=== PATIENT | male | born 1960 | race Caucasian/White ===

== ENCOUNTER 2017-02-02 14:17 | Observation (INO) ==
[2017-02-02 14:40] LABS: Basophils # 0.1 K/mcL (0.0-0.2); Basophils % 0.5 %; Eosinophils # 0.1 K/mcL (0.0-0.6); Eosinophils % 0.9 %; Hematocrit 46.4 % (37.5-50.1); Hemoglobin 15.7 g/dL (12.9-16.9); Immature Granulocytes % 0.5 % (0-4); Lymphocytes # 2.7 K/mcL (0.6-4.6); Lymphocytes % 20.6 %; Mean Corpuscular HGB Conc 33.8 g/dL (31.6-35.5); Mean Corpuscular Volume 88.5 fL (83.0-100.0); Mean Platelet Volume 9.7 fL (9.4-12.4); Monocytes # 1.2 K/mcL (0.0-1.3); Monocytes % 9.4 %; Neutrophils # 8.9 K/mcL (1.6-8.9); Platelet Count 372 K/mcL (140-400); Red Blood Count 5.24 M/mcL (4.19-5.50); Red Cell Distribution Width 12.7 % (11.5-14.5); Segmented Neutrophils % 68.1 %
[2017-02-02 14:48] LABS: INR 1.1; Prothrombin Time 11.9 Seconds (9.4-12.1)
[2017-02-02 14:50] LABS: BUN/Creatinine Ratio 12 (6-26); Blood Urea Nitrogen 14 mg/dL (8-26); Calcium 10.2 mg/dL (8.6-10.8); Carbon Dioxide 26 mEq/L (19-29); Chloride 102 mEq/L (98-109); Glucose 98 mg/dL (70-99); Osmolality,Calculated 284 (280-300); Potassium 4.2 mEq/L (3.5-4.5); Sodium 137 mEq/L (136-145); eGFR For African Americans > 60 (> 60); eGFR For Non-African Americans > 60 (> 60)
[2017-02-02 14:51] LABS: Activated Partial Thrombo Time 30.9 Seconds (26.0-36.0)
--- NOTE | 2017-02-02 15:04 | Emergency Department Note ---
Disposition Clinical Impression: Atrial fibrillation with rapid ventricular response Disposition: Admitted As Inpatient Condition: Fair Forms: ED Satisfaction Letter Time of Disposition: 15:33 Chest Pain HPI - General Chief Complaint: ED Chest Pain Stated Complaint: low bp, jaw pain, SOB. Time Seen by Provider: 02/02/17 14:25 Source: patient Limitations: no limitations Vital Signs Reviewed: Yes Nursing Notes Reviewed: Yes - History of Present Illness HPI Narrative: Presents with lightheadedness, chest palpitations, shortness of breath and jaw pain which began this morning suddenly when he was out for a walk. No meds used. Stated had similar symptoms with a rapid heart rate 1 year ago but is unsure of the exact diagnosis. His records have been reviewed and there was no diagnosis of atrial fibrillation at that time and the patient currently denies any chest pain, pain or swelling or numbness of the extremities, respiratory symptoms, blood in the urine or stool. Social history: No smoking, +alcohol, - drugs, he is here with his grandson Severity scale (1-10): 0 - Related Data Allergies Allergy/AdvReac Type Severity Reaction Status Date / Time No Known Allergies Allergy Verified 04/30/16 16:39 Review of Systems: As Per HPI Chest Pain PMH - Past Medical History Medical history: Reports: no medical history Psychiatric history: Reports: no psych history - Social History Smoking Status: Never smoker Alcohol use: Reports: none Drug use: Reports: none Physical Exam CONSTITUTIONAL: Well-appearing; well-nourished; A&O X 3, in no apparent distress HEAD: Normocephalic; atraumatic EYES: PERRL, no scleral icterus NOSE: The nose is normal in appearance without rhinorrhea NECK: No JVD or distended neck veins RESP: Normal chest excursion with respiration; breath sounds clear and equal bilaterally; no wheezes, rhonchi, or rales CARD: Irregular rhythm, without murmurs, rub or gallop ABD: Non-distended; non-tender, soft, without rigidity, rebound or guarding,no pulsatile mass SKIN: Normal for age and race; warm and dry without diaphoresis ; no apparent lesions EXTREMITIES: Pulses are 2 plus and equal times 4 extremities, no peripheral edema or calf muscle pain - General Limitations: no limitations General appearance: alert Course Vital Signs Temperature 98.8 F 02/02/17 14:26 Pulse Rate 152 02/02/17 14:26 Respiratory Rate 16 02/02/17 14:26 Blood Pressure 127/109 02/02/17 14:26 O2 Sat by Pulse Oximetry 95 02/02/17 14:26 Temperature 98.8 F 02/02/17 14:26 Pulse Rate 152 02/02/17 14:26 Respiratory Rate 16 02/02/17 14:26 Blood Pressure 127/109 02/02/17 14:26 O2 Sat by Pulse Oximetry 95 02/02/17 14:26 Oxygen Delivery Oxygen Delivery Room Air Chest Pain - MDM Narrative Medical decision making narrative: Patient does have new diagnosis of atrial fibrillation with rapid ventricular response and I did review the CT showing a rate of 155 bpm without acute ischemic changes. No evidence of a delta wave or QRS widening, the patient does have labs ordered including troponin, thyroid testing and and will be admitted to the hospital. Cardizem bolus 20 mg and drip 10 mg per hour and I will reassess. While I was in the room for the initial evaluation the patient did have returned to normal sinus rhythm with a rate of 72 and then spontaneously went back into atrial fibrillation with a rapid ventricular response. His blood pressure is 1:30 at the present time however he tells me that his blood pressure at home with his checked with his blood pressure monitor was 74 systolic. 1507 Case was discussed with the hospitalist accepted the patient for admission. I did review the labs and x-ray. The patient is on a Cardizem drip. I did speak with cardiology who agrees with Eduardo and I did write for that. 1533 - Medical Records Medical records reviewed: Yes I reviewed the patient's medical records. - Lab Data Lab results reviewed: Yes I reviewed the patient's lab results. Result diagrams: 02/02/17 14:29 02/02/17 14:29 Lab Results 02/02/17 02/02/17 02/02/17 Range/Units 14:29 14:29 14:29 WBC 13.1 H (4.3-11.1) K/mcL RBC 5.24 (4.19-5.50) M/mcL Hgb 15.7 (12.9-16.9) g/dL Hct 46.4 (37.5-50.1) % MCV 88.5 (83.0-100.0) fL MCH 30.0 (28.0-33.3) pg MCHC 33.8 (31.6-35.5) g/dL RDW 12.7 (11.5-14.5) % Plt Count 372 (140-400) K/mcL MPV 9.7 (9.4-12.4) fL Immature Gran % 0.5 (0-4) % Seg Neutrophils % 68.1 % Lymphocytes % 20.6 % Monocytes % 9.4 % Eosinophils % 0.9 % Basophils % 0.5 % Neutrophils # 8.9 (1.6-8.9) K/mcL Lymphocytes # 2.7 (0.6-4.6) K/mcL Monocytes # 1.2 (0.0-1.3) K/mcL Eosinophils # 0.1 (0.0-0.6) K/mcL Basophils # 0.1 (0.0-0.2) K/mcL PT 11.9 (9.4-12.1) Seconds INR 1.1 APTT 30.9 (26.0-36.0) Seconds Sodium 137 (136-145) mEq/L Potassium 4.2 (3.5-4.5) mEq/L Chloride 102 (98-109) mEq/L Carbon Dioxide 26 (19-29) mEq/L BUN 14 (8-26) mg/dL Creatinine 1.19 (0.72-1.25) mg/dL Est GFR ( Amer) > 60 (> 60) Est GFR (Non-Af Amer) > 60 (> 60) BUN/Creatinine Ratio 12 (6-26) Glucose 98 (70-99) mg/dL Calculated Osmolality 284 (280-300) Calcium 10.2 (8.6-10.8) mg/dL Troponin I (0-0.03) ng/mL 02/02/17 Range/Units 14:29 WBC (4.3-11.1) K/mcL RBC (4.19-5.50) M/mcL Hgb (12.9-16.9) g/dL Hct (37.5-50.1) % MCV (83.0-100.0) fL MCH (28.0-33.3) pg MCHC (31.6-35.5) g/dL RDW (11.5-14.5) % Plt Count (140-400) K/mcL MPV (9.4-12.4) fL Immature Gran % (0-4) % Seg Neutrophils % % Lymphocytes % % Monocytes % % Eosinophils % % Basophils % % Neutrophils # (1.6-8.9) K/mcL Lymphocytes # (0.6-4.6) K/mcL Monocytes # (0.0-1.3) K/mcL Eosinophils # (0.0-0.6) K/mcL Basophils # (0.0-0.2) K/mcL PT (9.4-12.1) Seconds INR APTT (26.0-36.0) Seconds Sodium (136-145) mEq/L Potassium (3.5-4.5) mEq/L Chloride (98-109) mEq/L Carbon Dioxide (19-29) mEq/L BUN (8-26) mg/dL Creatinine (0.72-1.25) mg/dL Est GFR ( Amer) (> 60) Est GFR (Non-Af Amer) (> 60) BUN/Creatinine Ratio (6-26) Glucose (70-99) mg/dL Calculated Osmolality (280-300) Calcium (8.6-10.8) mg/dL Troponin I 0.01 (0-0.03) ng/mL - Radiology Data Radiology results reviewed: Yes I reviewed the patient's radiology results.
[2017-02-02] MEDS ORDERED: *HR* Enoxaparin 80 MG/0.8 ML SYRINGE SQ STA (15:21)
[2017-02-02 15:40] LABS: Thyroid Stimulating Hormone 2.011 mcIU/mL (0.350-4.840)
[2017-02-02] MEDS ORDERED: Ondansetron 4 MG/2 ML VIAL IVP PRN (16:13)
[2017-02-02] MEDS ORDERED: Naloxone 0.4 MG/ML INJ IVP PRN (16:13)
[2017-02-02] MEDS ORDERED: Acetaminophen 325 MG TABLET PO PRN (16:13)
[2017-02-02] MEDS ORDERED: *HR* Heparin 5,000 UNIT/ML VIAL IVP PRN ×2 (16:13)
[2017-02-02] MEDS ORDERED: *HR* Metoprolol 5 MG/5 ML VIAL IVP PRN (16:13)
[2017-02-02] MEDS ORDERED: dilTIAZem HCl 100 MG in D5% in Water 50 ML IVC SCH (16:15)
[2017-02-02] MEDS ORDERED: Heparin 25,000 UNIT/500 ML D5W 25,000 UNIT/500 ML BAG IVC SCH (16:15)
[2017-02-02] MEDS ORDERED: ALPRAZolam 0.5 MG TABLET PO PRN (16:29)
--- NOTE | 2017-02-02 16:34 | Internal Med History&Physical ---
Date of Encounter: 02/02/17 Time of Encounter: 16:32 Assessment and Plan (1) Atrial fibrillation with rapid ventricular response Current visit: Yes Status: Acute A. fib with RVR with no trigger TSH is normal Telemetry May restart Cardizem drip, metoprolol IV 5 mg every 5 minutes as needed for heart rate more than 130. Order echocardiogram Received Lovenox but will be switched to heparin drip, cardiology has been consulted Lipid panel in the morning Omeprazole for GI prophylaxis and heparin drip for DVT prophylaxis. The patient will be admitted for observation. Time spent on this admission 40 minutes. High risk due to uncontrolled irregular rhythm (2) Anxiety Current visit: Yes Status: Acute May try some Xanax as needed (3) Leukocytosis Current visit: Yes Status: Acute Nonspecific, order a UA Qualifiers: Leukocytosis type: unspecified Qualified Code(s): D72.829 - Elevated white blood cell count, unspecified Internal Medicine - H&P: HPI Chief complaint: Palpitations and chest pain Admitted From: Emergency Dept History of present illness: Mr. Cabral is a 56 year old male with no past medical history who has been under a lot of stress lately as his is on hospice. Continue emergency room complaining of palpitations, shortness of breath and some chest pain that started earlier today at 10 AM while walking. He had a single episode about a year ago with no definitive diagnosis. His heart rate was in the 150s White blood cell count was 13.1. The patient mentions that his discomfort in his chest and lasted for about 3 hours. Chest x-ray is unremarkable. The patient was started on Cardizem 20 mg in the emergency room and the treatment was not started as the patient rate was controlled. His rhythm is a still very irregular but is in the 80s. Received 1 dose of Lovenox in the ER. Cardiology has been consulted. Also has been complaining of some nausea and intermittent chest pain for the past few days, pressure-like that lasts for an hour. No sick contacts other than his grandchildren with a viral upper respiratory infections, no cough or fevers. EKG shows atrial fibrillation with RVR Past Med Surg Social Fam HX - Past Medical History Medical history: no medical history Psychiatric history: no psych history - Past Surgical History Surgical History: other (Vasectomy, tonsillectomy ) - Social History Smoking Status: Never smoker Smokeless Tobacco Status: No Alcohol use: none Drug use: none - Additional Family History Additional family history: Mother with hypertension and pancreatic cancer, father with possible lung cancer Internal Medicine - H&P: Meds 3 Allergy/AdvReac Type Severity Reaction Status Date / Time No Known Allergies Allergy Verified 04/30/16 16:39 All Systems PM: A 10-system review of systems was performed and is negative for pertinent findings except as documented above in the HPI. Review of systems: Nausea, chest pain, weakness, anxiety, other systems out of the 10 reviewed were negative - Constitutional Vitals: Temp Pulse Resp BP Pulse Ox 98.8 F 152 16 127/109 95 02/02/17 14:26 02/02/17 14:26 02/02/17 14:26 02/02/17 14:26 02/02/17 14:26 General appearance: Present: A&O X 3 - Head Head exam: Present: atraumatic, normocephalic - Eye Eye exam: Present: PERRL, conjuntiva pink, sclera anicteric Pupils: Present: PERRL - Neck Neck exam general surgery: Present: supple, trachea midline. Absent: lymphadenopathy - Respiratory Respiratory exam: Present: CTAB. Absent: accessory muscle use, rales, rhonchi, wheezes - Cardiovascular Cardiovascular exam: Present: irregular rhythm, RRR, +S1, +S2. Absent: diastolic murmur, gallop, rubs, systolic murmur - GI/Abdominal GI/Abdominal exam: Present: normal bowel sounds, soft, no peritoneal signs. Absent: distended, tenderness - Extremities Exam Extremities exam: Present: warm, radial pulses palpable and symmetrical. Absent : calf tenderness, cyanotic, pedal edema - Neurological Exam Neurological exam: Present: CN II-XII intact, oriented X3, no focal deficits. Absent: pronater drift, facial droop, speech deficit - Skin Skin exam: Present: dry, intact Internal Med - H&P Results - Labs CBC & Chem 7: 02/02/17 14:29 02/02/17 14:29
[2017-02-03 01:11] LABS: Bilirubin,Urine Negative (Negative); Blood,Urine Negative (Negative); Clarity,Urine Clear (Clear); Color,Urine Yellow (Yellow); Glucose,Urine (UA) Normal (Normal); Ketones,Urine Negative (Negative); Leukocyte Esterase,Urine Negative (Negative); Nitrite,Urine Negative (Negative); PH,Urine 6.5 pH Units (5.0-8.0); Protein,Urine Negative (Neg-Trace); Specific Gravity,Urine 1.015 (1.010-1.025); Urobilinogen,Urine Normal (Normal)
[2017-02-03 01:54] LABS: BUN/Creatinine Ratio 14 (6-26); Blood Urea Nitrogen 13 mg/dL (8-26); Calcium 8.7 mg/dL (8.6-10.8); Carbon Dioxide 24 mEq/L (19-29); Chloride 105 mEq/L (98-109); Chol/HDL Ratio 4.7 (0-4.9); Cholesterol 161 mg/dL (< 200); Glucose 127 mg/dL (70-99); HDL Cholesterol 34 mg/dL (40-59); LDL Cholesterol,Calculated 95 mg/dL (0-99); Osmolality,Calculated 290 (280-300); Potassium 3.4 mEq/L (3.5-4.5); Sodium 139 mEq/L (136-145); Triglycerides 160 mg/dL (< 150); eGFR For African Americans > 60 (> 60); eGFR For Non-African Americans > 60 (> 60)
[2017-02-03] MEDS: dilTIAZem HCl 100 MG in D5% in Water 50 ML IVC SCH ×2 (04:16→04:20)
[2017-02-03] MEDS ORDERED: Aspirin Enteric Coated 325 MG Tablet PO SCH (09:30)
--- NOTE | 2017-02-03 11:06 | Cardiology Consult Note ---
Date of Encounter: 02/03/17 Time of Encounter: 11:04 Assessment and Plan (1) Paroxysmal atrial fibrillation Current Visit: Yes Status: Acute Proximal atrial fibrillation, currently in sinus rhythm. CHADS-VASc score 0. Recommend aspirin 325 mg daily. Change Cardizem drip to Cardizem CD for 120 mg daily. Given associated jaw discomfort, recommend a stress test to evaluate for ischemia. Echocardiogram demonstrated normal LV function. If no significant findings on stress test, then okay for discharge with the above medications and outpatient cardiology follow-up. Discussion w patient/family: The assessment and plan as outlined above was discussed with the patient and/or family members who expressed understanding and agreement. All questions were answered. Thank you for involving us in the care of your patient. Please call with any questions. 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 Symptoms began suddenly while walking the dog. Symptoms were persistent, which led to his ER visit. Describes associated low blood pressure, lightheadedness. Also reports discomfort in his jaw. Reports a similar episode last summer, which did not last as long. No known history of heart disease. He has never required a cardiac catheterization or stress test in the past. He does not routinely follow with a physician. He has not seen a family doctor in several years. Reports he is under a lot of stress. Unfortunately, his is in hospice. Past Med Surg Social Fam HX - Past Medical History Medical history: no medical history Psychiatric history: no psych history - Past Surgical History Surgical History: other - Social History Smoking Status: Never smoker Smokeless Tobacco Status: No Alcohol use: none Drug use: none Medications and Allergies 3 Allergy/AdvReac Type Severity Reaction Status Date / Time No Known Allergies Allergy Verified 04/30/16 16:39 All Systems Review: A 10-system review of systems was performed and is negative for pertinent findings except as documented above in the HPI. - Cardiovascular Cardiovascular: as per HPI, lightheadedness, palpitations, rapid heart rate Physical Examination Vital Signs, Last 4 Hours Pulse Ox 02/03/17 10:02 96 General: Conversant, No Apparent Distress HEENT: Atraumatic, Normocephaly, Mucus Membranes Moist Neck: No JVD, Normal carotid pulses Cardiac: Reg Rate and Rhythm, Normal S1 and S2, No Murmur Lungs: Normal Breath Sounds, No Wheeze, Rales, Rhonchi Neuro: Alert and responsive, No focal deficits noted Abdomen: Soft, Non-Tender Skin: No rashes noted on visualized skin Musculoskeletal: No Chest Wall Tenderness Extremities: No Clubbing, No Cyanosis, No Edema Results 02/02/17 14:29 02/03/17 00:24 Lab Results 02/03/17 02/03/17 02/03/17 00:24 00:24 07:27 APTT 62.3 H D 78.3 H Sodium 139 Potassium 3.4 L Chloride 105 Carbon Dioxide 24 BUN 13 Creatinine 0.90 Glucose 127 H Calcium 8.7 Magnesium 2.0 - Imaging and Cardiology Chest Xray: report reviewed Echo: report reviewed - EKG Interpretation EKG results cardiology: personally reviewed Consult Discharge Plan - Plan Referrals: Chau Melara MD [Primary Care Provider] -
[2017-02-03] MEDS ORDERED: Diltiazem CD (24hr) 120 MG CAPSULE PO SCH (11:15)
--- NOTE | 2017-02-03 15:50 | Event Note ---
Date of Encounter: 02/03/17 Time of Encounter: 15:49 Stress test negative. EF normal. Excellent exercise capacity. Remains in sinus rhythm. DX: PAF. Recommend continue aspirin 325 mg daily, Cardize CD 120 mg daily. Followup with me as outpatient in 2-3 weeks. No further inpatient cardiology testing appears necessary. Thanks, Terrance Conroy DO, FACC
[2017-02-03 16:05] VITALS: BP 109/74
--- NOTE | 2017-02-03 16:07 | Discharge Summary ---
Date of Encounter: 02/03/17 Time of Encounter: 16:04 - Discharge Diagnosis (1) Atrial fibrillation with rapid ventricular response Priority: Primary Status: Acute Comments: Paroxysmal atrial fibrillation (2) Anxiety Priority: Secondary Status: Acute (3) Leukocytosis Priority: Secondary Status: Acute Qualifiers: Leukocytosis type: unspecified Qualified Code(s): D72.829 - Elevated white blood cell count, unspecified (4) Hypokalemia Priority: Secondary Status: Acute - Discharge Medications Prescriptions: ALPRAZolam [Xanax 0.5 MG Tablet] 0.5 mg PO TID PRN #20 tablet PRN Reason: Anxiety Aspirin Enteric Coated [Aspirin EC] 325 mg PO DAILY #30 tablet. Diltiazem CD (24hr) [Cardizem CD] 120 mg PO DAILY #30 cap.er.24h Home Medications: ALPRAZolam [Xanax 0.5 MG Tablet] 0.5 mg PO TID PRN #20 tablet 02/03/17 [Rx] Aspirin Enteric Coated [Aspirin EC] 325 mg PO DAILY #30 tablet. 02/03/17 [Rx] Diltiazem CD (24hr) [Cardizem CD] 120 mg PO DAILY #30 cap.er.24h 02/03/17 [Rx] Allergies/Adverse Reactions: 3 Allergy/AdvReac Type Severity Reaction Status Date / Time No Known Allergies Allergy Verified 04/30/16 16:39 Procedures/tests Complete & Pending: Procedures Performed prior 72 hours Category Date Time Status NM kat perf SPECT multi [NM] Routine Exams 02/03/17 09:30 Taken EV echocardiogram Routine Y 02/02/17 16:17 Completed SP exercise nuclear stress Routine Y 02/03/17 09:29 Completed Date of admission: 02/02/17 15:41 Primary care physician: Chau Melara MD - Patient Status Disposition: Home, Self-Care Condition: Good Overall status at discharge: patient is back to baseline - Discharge Instructions Follow Up With: Chau Melara MD [Primary Care Provider] - Additional Instructions: Follow-up with primary care physician within the next 7 days. Follow-up with cardiology within the next 2-3 weeks. Continue aspirin and Cardizem as prescribed. Xanax as needed for anxiety - Diet and Activity Activity: increase activity as tolerated Diet: regular diet Hospital course: Mr. Cabral is a 56 year old male with no past medical history who has been under a lot of stress lately as his is on hospice. Came to the emergency room complaining of palpitations, shortness of breath and some chest pain while walking. He had a single episode about a year ago with no definitive diagnosis. His heart rate was in the 150s, White blood cell count was 13.1. The patient mentions that his discomfort in his chest and lasted for about 3 hours. Chest x-ray was unremarkable. The patient was started on Cardizem 20 mg in the emergency room and the drip was not started as the patient rate was controlled. His rhythm was very irregular in the 80s. Received 1 dose of Lovenox in the ER. Cardiology was consulted. EKG showed atrial fibrillation with RVR Potassium was 3.4 and was repleted with 40 Meq of potassium chloride A stress test was ordered and the report was unremarkable, the patient is in sinus rhythm. Cardiology recommended follow-up as an outpatient in 2-3 weeks, to continue aspirin 325 mg daily and Cardizem 120 mg daily. - Time Spent with Patient Total time spent providing and/or coordinating discharge services: Greater than 30 minutes (40 min) - Constitutional Vitals: Temp Pulse Resp BP Pulse Ox 98.1 F 64 17 111/70 97 02/03/17 11:59 02/03/17 11:59 02/03/17 11:59 02/03/17 11:59 02/03/17 11:59 General appearance: Present: A&O X 3 - Head Head exam: Present: atraumatic, normocephalic - Eye Eye exam: Present: PERRL, conjuntiva pink, sclera anicteric Pupils: Present: PERRL - Neck Neck exam general surgery: Present: supple, trachea midline. Absent: lymphadenopathy - Respiratory Respiratory exam: Present: CTAB. Absent: accessory muscle use, rales, rhonchi, wheezes - Cardiovascular Cardiovascular exam: Present: RRR, +S1, +S2. Absent: diastolic murmur, gallop, rubs, systolic murmur - GI/Abdominal GI/Abdominal exam: Present: normal bowel sounds, soft, no peritoneal signs. Absent: distended, tenderness - Extremities Exam Extremities exam: Present: warm, radial pulses palpable and symmetrical. Absent : calf tenderness, cyanotic, pedal edema - Neurological Exam Neurological exam: Present: CN II-XII intact, oriented X3, no focal deficits. Absent: pronater drift, facial droop, speech deficit - Skin Skin exam: Present: dry, intact
[2017-02-03] MEDS ORDERED: FLUARIX QUAD 2017-18 36MOS UP/PF 0.5 ML SYRINGE IM ONE (16:24)
--- NOTE | 2017-02-05 16:53 | Electrocardiograph Report ---
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
== END 2017-02-03 16:40 | disposition home or self-care (01) ==
LOC: 2ANU 14:17 → EMEROO 14:17 → 2ANU 17:35
PROVIDERS: ADMIT Internal Medicine; ATTEND Internal Medicine

== ENCOUNTER 2017-07-28 18:41 | Observation (INO) ==
[2017-07-28] MEDS ORDERED: 0.9 % Sodium Chloride 1,000 ML IVC ONE (18:54)
[2017-07-28] MEDS ORDERED: *HR* Enoxaparin 100 MG/ML SYRINGE SQ STA (19:05)
--- NOTE | 2017-07-28 19:11 | Emergency Department Note ---
Disposition Clinical Impression: Atrial fibrillation with RVR, Epistaxis Disposition: Admitted As Inpatient Condition: Fair Referrals: Chau Melara MD [Primary Care Provider] - Forms: ED Satisfaction Letter Time of Disposition: 19:58 Arrhythmia/Palpitations HPI - General Chief Complaint: ED Chest Pain Stated Complaint: A FIb Time Seen by Provider: 07/28/17 18:51 Source: patient Limitations: no limitations Nursing Notes Reviewed: Yes Vital Signs Reviewed: Yes - History of Present Illness HPI Narrative: 56-year-old male history of paroxysmal atrial fibrillation antiquated on aspirin presents with episodes of palpitations onset a couple hours prior to arrival. Patient states that he has no chest pain or shortness of breath. But he is been having palpitations since he was outside mowing lawn and also using a chainsaw he felt like he got a little bit dehydrated, then felt like his heart was racing. Patient states that he has no hemoptysis, hematochezia, melena, epistaxis, he has no chest pain at this time, just feels lightheaded and palpitations. He does not feel short of breath. Is on Cartia for rhythm control Pt Subjective Complaint: rapid heart beat, "heart racing", irregular heart beat Onset (ago): minute(s) Duration: intermittent Severity: moderate Arrhythmia History: atrial fibrillation Associated symptoms: Denies: chest pain, shortness of breath, syncope, near- syncope, nausea, vomiting - Related Data Previous Rx's Medication Instructions Recorded ALPRAZolam [Xanax 0.5 MG Tablet] 0.5 mg PO TID PRN #20 tablet 02/03/17 Aspirin Enteric Coated [Aspirin EC] 325 mg PO DAILY #30 tablet.dr 02/03/17 Diltiazem CD (24hr) [Cardizem CD] 120 mg PO DAILY #30 cap.er.24h 02/03/17 Allergies Allergy/AdvReac Type Severity Reaction Status Date / Time No Known Allergies Allergy Verified 04/30/16 16:39 All systems ED: reviewed and negative except as stated. Review of Systems: As Per HPI Constitutional: Denies: fever, chills Eyes: Denies: eye pain Cardiovascular: Reports: palpitations. Denies: chest pain, dyspnea on exertion Respiratory: Denies: cough, dyspnea Gastrointestinal: Denies: abdominal pain, nausea Genitourinary: Denies: urgency, dysuria Musculoskeletal: Denies: back pain Integumentary: Denies: rash, abrasion Neurological: Denies: headache Past Medical History - Past Medical History Attestation: Yes The following information was validated with the patient. Source: patient Medical history: Reports: atrial fibrillation Surgical history: Reports: other Psychiatric history: Reports: no psych history - Social History Smoking Status: Never smoker Smokeless Tobacco Status: No Alcohol use: Reports: none Drug use: Reports: none Physical Exam - General Limitations: no limitations General appearance: alert, in no apparent distress - Eye Eye exam: Present: normal appearance - ENT ENT exam: normal exam, normal oropharynx - Neck Neck exam: Present: normal inspection, full ROM - Chest Chest inspection: Present: normal inspection - Respiratory Respiratory exam: Present: normal lung sounds bilaterally. Absent: respiratory distress - Cardiovascular Cardiovascular exam: Present: tachycardia, irregular rhythm - Abdominal Exam Abdominal exam: Present: soft, Non-Tender - Extremities Exam Extremities exam: Present: normal inspection, full ROM - Neurological Exam Neurological exam: Present: alert, oriented X3, CN II-XII intact, normal gait Course Course Narrative: Patient's a 56-year-old male has history of atrial fibrillation with rapid ventricular response ischemic changes on his EKG, CBC BMP troponin, coags, plan will be for Lovenox, patient's pain Cardizem bolus and drip. Rate control at this time is not unstable, he had one pressure in the 90s systolic but after recheck and fluid boluses in the 120 systolic. - Reevaluation(s) Reevaluation #1: Patient heart rate down to the 90s to low 100s, on diltiazem drip, titrating up he did have one episode of epistaxis, so we did hold off on giving him Lovenox at this time, epistaxis was able to be controlled with direct pressure, the patient is hemodynamic stable plan for admission to hospital service page Dr. Lazaro Time: 19:58 Reevaluation #2: Admitted Dr Lazaro, rate in the 100s stable. Time: 20:18 Vital Signs Temperature 98.4 F 07/28/17 18:42 Pulse Rate 144 07/28/17 18:42 Respiratory Rate 22 07/28/17 18:42 O2 Sat by Pulse Oximetry 93 07/28/17 18:42 Temperature 98.4 F 07/28/17 18:55 Pulse Rate 96 07/28/17 19:52 Respiratory Rate 16 07/28/17 19:52 Blood Pressure 101/70 07/28/17 19:52 O2 Sat by Pulse Oximetry 96 07/28/17 19:52 Oxygen Delivery Oxygen Delivery Room Air Arrhythmia/Palpitations - Differential Diagnosis Differential Diagnosis: Likely: sinus tachycardia, artial arrhythmia, ventricular premature beats, supraventricular tachycardia, ventricular tachycardia - Medical Records Medical records reviewed: Yes I reviewed the patient's medical records. - Lab Data Lab results reviewed: Yes I reviewed the patient's lab results. Result diagrams: 07/28/17 18:54 07/28/17 18:54 Lab Results 07/28/17 07/28/17 07/28/17 Range/Units 18:54 18:54 18:54 WBC 14.5 H (4.3-11.1) K/mcL RBC 4.98 (4.19-5.50) M/mcL Hgb 15.3 (12.9-16.9) g/dL Hct 44.3 (37.5-50.1) % MCV 89.0 (83.0-100.0) fL MCH 30.7 (28.0-33.3) pg MCHC 34.5 (31.6-35.5) g/dL RDW 12.5 (11.5-14.5) % Plt Count 334 (140-400) K/mcL MPV 10.1 (9.4-12.4) fL Immature Gran % 0.8 (0-4) % Seg Neutrophils % 73.1 % Lymphocytes % 16.9 % Monocytes % 8.0 % Eosinophils % 0.8 % Basophils % 0.4 % Neutrophils # 10.6 H (1.6-8.9) K/mcL Lymphocytes # 2.5 (0.6-4.6) K/mcL Monocytes # 1.2 (0.0-1.3) K/mcL Eosinophils # 0.1 (0.0-0.6) K/mcL Basophils # 0.1 (0.0-0.2) K/mcL PT 11.7 (9.4-12.1) Seconds INR 1.1 APTT 32.4 (26.0-36.0) Seconds Sodium 136 (136-145) mEq/L Potassium 3.8 (3.5-5.1) mEq/L Chloride 105 (98-107) mEq/L Carbon Dioxide 22 L (23-29) mEq/L BUN 18 (6-20) mg/dL Creatinine 1.11 (0.70-1.30) mg/dL Est GFR ( Amer) > 60 (> 60) Est GFR (Non-Af Amer) > 60 (> 60) BUN/Creatinine Ratio 16 (6-26) Glucose 98 (70-105) mg/dL Calculated Osmolality 284 (280-300) Calcium 9.4 (8.6-10.3) mg/dL Troponin I < 0.03 (< 0.04) ng/mL TSH 2.502 (0.340-5.600) mcIU/mL - Radiology Data Radiology results reviewed: Yes I reviewed the patient's radiology results. Chest X-Ray 07/28/17 18:54 IMPRESSION: 1. No acute cardiopulmonary disease. D/ / Marry Jeffries MD / Marry Jeffries MD Interpreting Provider: Marry Jeffries MD - EKG Data EKG attestation: Yes I reviewed and interpreted this EKG. Rhythm: A.Fib (1 51 bpm QRS 98 QTc 361 atrial fibrillation with rapid ventricular response no seeming changes) - Core Measures AMI Core Measures Followed: No Measure Exclusions: not indicated Critical Care Time Critical Care Time: Yes Total Critical Care Time: 35 Attestation: Critical care time 35 minutes managing patient's A. fib with RVR. Attestation Statement - Attestation Attestation: Patient was seen with resident physician. I reviewed the history, physical, assessment and plan, and agree with the findings. I also personally evaluated this patient and had [id number] time with this patient. 56-year-old male presents emergency Department with palpitations. Patient is a history of A. fib. Says he was outside doing a lot of yard work. Nose proximal 0.4 hours prior to arrival that he was having palpitations. Associated with lightheadedness sensation he was going to pass out though he has not, and some mild shortness of breath. He denies fevers or chills. No chest pain. No abdominal pain. Says similar to episodes of A. fib in the past. He takes an aspirin but no other anticoagulants. He says he is on a medication for atrial fibrillation as well. Review of systems as above remained reviewed negative. Physical exam vital signs patient's tachycardic with pulse in the 150s. ENT is unremarkable. Heart tachycardic. Lungs clear. Abdomen soft nontender. Extremities unremarkable no lower extremity edema. Neurologically intact. Skin no rashes. Psych normal. ED course EKG shows A. fib with RVR. We will do a full cardiac workup and start the patient on Cardizem bolus along with a drip. Also received IV fluids. Patient will be admitted to the hospital for A. fib with RVR. Critical care time for this patient was 35 minutes. Hospitalist service was notified. Hemodynamically he remains stable and improved on the Cardizem. I agree with resident physician assessment and plan.
[2017-07-28 19:19] LABS: Basophils # 0.1 K/mcL (0.0-0.2); Basophils % 0.4 %; Eosinophils # 0.1 K/mcL (0.0-0.6); Eosinophils % 0.8 %; Hematocrit 44.3 % (37.5-50.1); Hemoglobin 15.3 g/dL (12.9-16.9); Immature Granulocytes % 0.8 % (0-4); Lymphocytes # 2.5 K/mcL (0.6-4.6); Lymphocytes % 16.9 %; Mean Corpuscular HGB Conc 34.5 g/dL (31.6-35.5); Mean Corpuscular Hemoglobin 30.7 pg (28.0-33.3); Mean Platelet Volume 10.1 fL (9.4-12.4); Monocytes # 1.2 K/mcL (0.0-1.3); Neutrophils # 10.6 K/mcL (1.6-8.9); Platelet Count 334 K/mcL (140-400); Red Blood Count 4.98 M/mcL (4.19-5.50); Red Cell Distribution Width 12.5 % (11.5-14.5); Segmented Neutrophils % 73.1 %
[2017-07-28 19:30] LABS: INR 1.1; Prothrombin Time 11.7 Seconds (9.4-12.1)
[2017-07-28 19:32] LABS: Activated Partial Thrombo Time 32.4 Seconds (26.0-36.0)
[2017-07-28 19:41] LABS: BUN/Creatinine Ratio 16 (6-26); Blood Urea Nitrogen 18 mg/dL (6-20); Calcium 9.4 mg/dL (8.6-10.3); Carbon Dioxide 22 mEq/L (23-29); Chloride 105 mEq/L (98-107); Glucose 98 mg/dL (70-105); Osmolality,Calculated 284 (280-300); Potassium 3.8 mEq/L (3.5-5.1); Sodium 136 mEq/L (136-145); eGFR For African Americans > 60 (> 60); eGFR For Non-African Americans > 60 (> 60)
[2017-07-28 19:42] LABS: Troponin I < 0.03 ng/mL (< 0.04)
[2017-07-28 19:56] LABS: Thyroid Stimulating Hormone 2.502 mcIU/mL (0.340-5.600)
[2017-07-28] MEDS ORDERED: Acetaminophen 325 MG TABLET PO PRN (20:27)
[2017-07-28] MEDS ORDERED: Naloxone 0.4 MG/ML INJ IVP PRN (20:27)
--- NOTE | 2017-07-28 20:31 | Internal Med History&Physical ---
Date of Encounter: 07/28/17 Time of Encounter: 20:29 Internal Medicine - H&P: HPI Chief complaint: Palpitations Admitted From: Emergency Dept Plans for Post Hospital Care: Home History of present illness: Mr. Cabral is a 56 year old male with history of paroxysmal A. fib, and anxiety who presented to the ED with complaints of palpitations that started a couple hours prior to arrival. The patient states that he was mowing the lawn using a chainsaw when he started feeling palpitations. He felt his heart was racing. He felt lightheaded and weak. He decided to come and get evaluated and he was found to be in atrial fibrillation with rapid ventricular response. Heart rate was in the 140s. The patient was given IV fluids, 20 mg IV Cardizem and started on a Cardizem drip with his heart. Come down to the low 100s. The patient denies any chest pain, shortness breath, fever, chills, nausea, vomiting , abdominal pain, diarrhea, urinary symptoms, or neurological symptoms. Chest x -ray was clear in the ED. The ED staff went to anticoagulate the patient with Lovenox however the patient experienced some epistaxis. When I questioned patient about this and told me it only lasted for a few seconds and resolved by applying pressure with no issues. He says he has no history of this. Past Med Surg Social Fam HX - Past Medical History Medical history: atrial fibrillation Psychiatric history: no psych history - Past Surgical History Surgical History: other - Social History Smoking Status: Never smoker Smokeless Tobacco Status: No Alcohol use: none Drug use: none Internal Medicine - H&P: Meds ALPRAZolam [Xanax 0.5 MG Tablet] 0.5 mg PO TID PRN #20 tablet 02/03/17 [Rx] Aspirin Enteric Coated [Aspirin EC] 325 mg PO DAILY #30 tablet.dr 02/03/17 [Rx] Diltiazem CD (24hr) [Cardizem CD] 120 mg PO DAILY #30 cap.er.24h 02/03/17 [Rx] 3 Allergy/AdvReac Type Severity Reaction Status Date / Time No Known Allergies Allergy Verified 04/30/16 16:39 All Systems PM: A 10-system review of systems was performed and is negative for pertinent findings except as documented above in the HPI. Review of systems: All systems reviewed are negative except for as mentioned above - Constitutional Vitals: Temp Pulse Resp BP Pulse Ox 98.4 F 88 14 97/72 98 07/28/17 18:55 07/28/17 20:26 07/28/17 20:26 07/28/17 20:26 07/28/17 20:26 Exam: GEN: NAD HEENT: AT, NC, No cyanosis, oral mucosa is moist, No JVD Lymphatics: No lymphadenoapthy Eyes: Extrocular muscles intact, anicteric CVS: Tachycardic and irregular. S1, S2, No m/r/g RESP: CTAB ABD: Soft, NT, ND, +BS EXT: No edema, No rashes, 2+ DP NEURO: Nonfocal, CN II-XII intact, No focal motor or sensory deficits Psych: Cooperative, Not anxious or depressed Internal Med - H&P Results - Labs CBC & Chem 7: 07/28/17 18:54 07/28/17 18:54 - Assessment and plan (1) Atrial fibrillation with rapid ventricular response Current Visit: Yes Status: Acute Assessment and plan: Continue Cardizem drip for now. May switch to oral Cardizem and possibly increase his dose tomorrow. No need to repeat an echo. Echo in 2017 showed an EF of 60% with no valvular abnormalities. Patient may be resumed on adult dose aspirin. He is not to be anticoagulated he has a low chadsvasc score. Check magnesium level. Check TSH. No plans to get cardiology involved for now. Patient looks clinically dehydrated and I have started him on some IV fluids. (2) Leukocytosis Current Visit: No Status: Acute Assessment and plan: No signs of sepsis. Patient is afebrile. Likely reactive. We will monitor.. Qualifiers: Leukocytosis type: unspecified Qualified Code(s): D72.829 - Elevated white blood cell count, unspecified (3) Epistaxis Current Visit: Yes Status: Acute Assessment and plan: This was a one-time episode in the ED after he blew his nose. Resolved within seconds by applying pressure. We will monitor for now. It is okay to give adult dose aspirin. (4) Anxiety Current Visit: No Status: Acute Assessment and plan: Resume home anxiolytics (5) DVT prophylaxis Current Visit: Yes Status: Acute Assessment and plan: Heparin subcutaneous - Time Spent With Patient Total time spent is greater than 50% in coordination of care (as documented) at patient's floor/unit and/or counseling patient:
[2017-07-28] MEDS ORDERED: 0.9 % Sodium Chloride 1,000 ML IVC SCH (20:45)
[2017-07-28] MEDS ORDERED: ALPRAZolam 0.5 MG TABLET PO PRN (21:54)
[2017-07-28] MEDS ORDERED: *HR* Heparin 5,000 UNIT/ML VIAL SQ SCH (22:00)
[2017-07-28] MEDS: *HR* Heparin 5,000 UNIT/ML VIAL SQ SCH (23:27)
[2017-07-29] MEDS: *HR* Heparin 5,000 UNIT/ML VIAL SQ SCH (06:03)
[2017-07-29 06:57] VITALS: BP 103/70
[2017-07-29 07:36] LABS: Basophils # 0.1 K/mcL (0.0-0.2); Basophils % 0.7 %; Eosinophils # 0.2 K/mcL (0.0-0.6); Hematocrit 38.8 % (37.5-50.1); Hemoglobin 13.1 g/dL (12.9-16.9); Immature Granulocytes % 0.7 % (0-4); Lymphocytes # 1.9 K/mcL (0.6-4.6); Lymphocytes % 21.4 %; Mean Corpuscular HGB Conc 33.8 g/dL (31.6-35.5); Mean Corpuscular Hemoglobin 30.4 pg (28.0-33.3); Mean Platelet Volume 9.9 fL (9.4-12.4); Monocytes # 0.9 K/mcL (0.0-1.3); Monocytes % 9.7 %; Neutrophils # 5.9 K/mcL (1.6-8.9); Platelet Count 258 K/mcL (140-400); Red Blood Count 4.31 M/mcL (4.19-5.50); Red Cell Distribution Width 12.7 % (11.5-14.5); Segmented Neutrophils % 65.5 %
[2017-07-29 07:54] LABS: BUN/Creatinine Ratio 15 (6-26); Blood Urea Nitrogen 14 mg/dL (6-20); Calcium 8.7 mg/dL (8.6-10.3); Carbon Dioxide 26 mEq/L (23-29); Chloride 109 mEq/L (98-107); Glucose 103 mg/dL (70-105); Osmolality,Calculated 289 (280-300); Potassium 4.3 mEq/L (3.5-5.1); Sodium 139 mEq/L (136-145); eGFR For African Americans > 60 (> 60); eGFR For Non-African Americans > 60 (> 60)
[2017-07-29] MEDS ORDERED: Aspirin Enteric Coated 325 MG Tablet PO SCH (09:00)
--- NOTE | 2017-07-29 11:11 | Discharge Summary ---
- NOTES TO OUTPATIENT PROVIDER Notes to Outpatient Provider: The patient is to meet a senior software quality engineer, Dr. Tran in August. This was a second episode of atrial fibrillation. The previous one happened in January 2017. He will be taking Enteric-coated aspirin daily. He does not qualify for anticoagulation. Orders not resulted at time of discharge: Pending orders 07/28/17 20:51 EKG [ECG 12 lead ECG] [ECG] Stat Date of Encounter: 07/29/17 Time of Encounter: 11:09 - Discharge Diagnosis (1) Paroxysmal atrial fibrillation Priority: Primary Status: Acute (2) Leukocytosis Priority: Secondary Status: Acute Qualifiers: Leukocytosis type: unspecified Qualified Code(s): D72.829 - Elevated white blood cell count, unspecified (3) Epistaxis Priority: Secondary Status: Acute (4) Anxiety Priority: Secondary Status: Chronic Hospital course: Mr. Cabral is a 56 year old male. He was admitted to the hospital with atrial fibrillation/rapid ventricular rate. It was associated with mild chest discomfort. The patient got 20 mg of IV Cardizem. It was followed by IV Cardizem drip. Sometime later he cardioverted to normal sinus rhythm. When being in the emergency department he experienced an episode of nosebleed. It happened when he was blowing his nose. It was short lasting. He had WBC count of 14.5 thousand; is 9.0 thousand today. His TSH from yesterday was 2.502. His last echocardiogram was done in 2017. It showed ejection fraction of 60% without any significant abnormalities. His potassium at admission was 3.8. It is a 4.3 today. His magnesium at admission was 2.0. The patient good last night/today morning. Denies chest pain. Denies difficulty breathing. Denies coughing and wheezing. He has normal bowel movements/urination. His vitals are normal. Telemetry shows normal sinus rhythm. The patient is to see Dr. Tran, cardiology in August of this year. He will continue daily and enteric-coated aspirin. He will continue Cardizem CD at 120 mg orally daily. He is not a candidate for anticoagulation low risk for pulmonary embolism. Discharge discussed with: patient, family - Time Spent with Patient Total time spent providing and/or coordinating discharge services: Greater than 30 minutes (35 minutes.) - Discharge Medications Home Medications: Aspirin Enteric Coated [Aspirin EC] 325 mg PO DAILY #30 tablet.dr 02/03/17 [Rx] Diltiazem CD (24hr) [Cardizem CD] 120 mg PO DAILY #30 cap.er.24h 02/03/17 [Rx] Allergies/Adverse Reactions: 3 Allergy/AdvReac Type Severity Reaction Status Date / Time No Known Allergies Allergy Verified 04/30/16 16:39 Date of admission: 07/28/17 20:27 Primary care physician: Chau Melara MD - Constitutional Vitals: Temp Pulse Resp BP Pulse Ox 97.9 F 64 18 103/70 95 07/29/17 06:50 07/29/17 06:50 07/29/17 06:50 07/29/17 06:50 07/29/17 06:50 General appearance: Present: pleasant, no acute distress, answers questions appropriately - Respiratory Respiratory exam: Present: CTAB. Absent: accessory muscle use, rales, rhonchi, wheezes - Cardiovascular Cardiovascular exam: Present: RRR, +S1, +S2. Absent: diastolic murmur, gallop, rubs, systolic murmur - GI/Abdominal GI/Abdominal exam: Present: normal bowel sounds, soft, no peritoneal signs. Absent: distended, tenderness - Skin Skin exam: Present: dry, intact - Patient Status Disposition: Home, Self-Care Condition: Good Functional capacity at discharge: independent ambulation Overall status at discharge: patient is back to baseline - Discharge Instructions Follow Up With: Chau Melara MD [Primary Care Provider] - - Diet and Activity Activity: increase activity as tolerated Diet: advance to your usual diet - VTE Reasons for not Prescribing Prophylaxis: Treatment not Indicated - Low risk for VTE Deep Vein Thrombosis/Pulmonary Embolism Present on Admission: No
--- NOTE | 2017-07-30 09:46 | Electrocardiograph Report ---
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
--- NOTE | 2017-07-30 15:27 | Electrocardiograph Report ---
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
== END 2017-07-29 12:54 | disposition home or self-care (01) ==
LOC: EMEROO 18:41 → 2NENU 18:41 → SUATTDRO 20:27 → 2NENU 21:22
PROVIDERS: ADMIT Internal Medicine; ATTEND Internal Medicine

== ENCOUNTER 2018-06-08 00:16 | Observation (INO) ==
[2018-06-08] MEDS ORDERED: Aspirin 325 MG TABLET PO ONE (00:25)
[2018-06-08 00:48] LABS: Basophils # 0.1 K/mcL (0.0-0.2); Basophils % 0.5 %; Eosinophils # 0.1 K/mcL (0.0-0.6); Eosinophils % 0.8 %; Hematocrit 43.3 % (37.5-50.1); Hemoglobin 14.8 g/dL (12.9-16.9); Immature Granulocytes % 0.4 % (0-4); Lymphocytes # 2.3 K/mcL (0.6-4.6); Mean Corpuscular HGB Conc 34.2 g/dL (31.6-35.5); Mean Corpuscular Hemoglobin 30.6 pg (28.0-33.3); Mean Corpuscular Volume 89.5 fL (83.0-100.0); Mean Platelet Volume 9.8 fL (9.4-12.4); Monocytes # 1.1 K/mcL (0.0-1.3); Monocytes % 8.5 %; Neutrophils # 9.3 K/mcL (1.6-8.9); Platelet Count 351 K/mcL (140-400); Red Blood Count 4.84 M/mcL (4.19-5.50); Red Cell Distribution Width 12.3 % (11.5-14.5); Segmented Neutrophils % 71.8 %
[2018-06-08 00:55] LABS: INR 1.1; Prothrombin Time 12.5 Seconds (9.4-12.1)
[2018-06-08 00:58] LABS: Activated Partial Thrombo Time 34.4 Seconds (26.0-36.0)
[2018-06-08 01:10] LABS: BUN/Creatinine Ratio 15 (6-26); Blood Urea Nitrogen 15 mg/dL (6-20); Calcium 9.7 mg/dL (8.6-10.3); Carbon Dioxide 26 mEq/L (23-29); Chloride 104 mEq/L (98-107); Glucose 99 mg/dL (70-105); Magnesium 2.1 mg/dL (1.6-2.6); Osmolality,Calculated 289 (280-300); Potassium 3.7 mEq/L (3.5-5.1); Sodium 139 mEq/L (136-145); eGFR For Non-African Americans > 60 (> 60)
[2018-06-08 01:11] LABS: Troponin I < 0.03 ng/mL (< 0.04)
[2018-06-08 01:25] LABS: Thyroid Stimulating Hormone 4.648 mcIU/mL (0.340-5.600)
--- NOTE | 2018-06-08 03:31 | Emergency Department Note ---
Disposition Clinical Impression: Atrial fibrillation Qualifiers: Atrial fibrillation type: paroxysmal Qualified Code(s): I48.0 - Paroxysmal atrial fibrillation Disposition: Admitted As Inpatient Condition: Fair Referrals: Chau Melara MD [Primary Care Provider] - Time of Disposition: 05:16 Arrhythmia/Palpitations HPI - General Chief Complaint: ED Arrhythmia/Palpitations Stated Complaint: Afib Time Seen by Provider: 06/08/18 00:19 Source: patient Mode of arrival: ambulatory Limitations: no limitations Nursing Notes Reviewed: Yes Vital Signs Reviewed: Yes - History of Present Illness HPI Narrative: Patient presents emergency room for lightheadedness and dizziness secondary to atrial fibrillation. Patient is seen by cardiology. He is attempted oral medications with moderate control be continues to pop in and out of atrial fibrillation. He is scheduled to be started on sotalol here in the next week. Patient denies any other complaints or issues Pt Subjective Complaint: rapid heart beat, palpitations Onset (ago): Just INTERVENTIONAL TECH Duration: intermittent Severity: moderate Context: occurred during rest Arrhythmia History: atrial fibrillation Associated symptoms: Reports: denies other symptoms - Related Data Previous Rx's Medication Instructions Recorded Aspirin Enteric Coated [Aspirin EC] 325 mg PO DAILY #30 tablet.dr 02/03/17 Diltiazem CD (24hr) [Cardizem CD] 180 mg PO DAILY #30 cap.er.24h 05/17/18 Allergies Allergy/AdvReac Type Severity Reaction Status Date / Time No Known Allergies Allergy Verified 04/30/16 16:39 All systems ED: reviewed and negative except as stated. Review of Systems: As Per HPI Constitutional: Denies: fever, chills ENT ED: Denies: congestion Cardiovascular: Reports: palpitations. Denies: chest pain, dyspnea on exertion, orthopnea, edema Respiratory: Denies: cough, dyspnea, wheezes Gastrointestinal: Denies: abdominal pain, nausea, vomiting, diarrhea, constipation Genitourinary: Denies: urgency, dysuria, frequency Musculoskeletal: Denies: back pain, neck pain Neurological: Denies: headache Psychiatric: Denies: anxiety, depression Endocrine: Denies: fatigue Past Medical History - Past Medical History Attestation: Yes The following information was validated with the patient. Source: patient Medical history: Reports: atrial fibrillation Surgical history: Reports: tonsilectomy, vasectomy Psychiatric history: Reports: no psych history - Social History Smoking Status: Never smoker Smokeless Tobacco Status: No Alcohol use: Reports: none Drug use: Reports: none Physical Exam - General Limitations: no limitations General appearance: alert, in no apparent distress - Head Head exam: atraumatic, normocephalic, normal inspection - Eye Eye exam: Present: normal appearance, PERRL, EOMI - ENT ENT exam: normal exam, normal oropharynx, mucous membranes moist - Neck Neck exam: Present: normal inspection, full ROM, trachea midline. Absent: tenderness, meningismus, lymphadenopathy - Chest Chest inspection: Present: normal inspection, symmetric chest wall rise. Absent: tenderness - Respiratory Respiratory exam: Present: normal lung sounds bilaterally - Cardiovascular Cardiovascular exam: Present: tachycardia, irregular rhythm, normal heart sounds - Abdominal Exam Abdominal exam: Present: soft, Non-Tender, normal bowel sounds. Absent: tenderness, distention, guarding, rebound, rigidity - Extremities Exam Extremities exam: Present: normal inspection, full ROM, normal capillary refill. Absent: tenderness - Back Exam Back exam: Present: normal inspection - Neurological Exam Neurological exam: Present: alert, oriented X3, CN II-XII intact, normal gait - Skin Skin exam: Present: warm, dry, intact, normal color Course Course Narrative: Patient seen and examined the time of arrival. See history of present illness. Patient presents here today for palpitations. Patient is had this multiple times in the past. He is been evaluated and treated by cardiology. He has been seen by Dr. Carroll Tran for cardiac ablation. Patient is been unable to get a prior office by his insurance company. Patient was scheduled to be admitted for three-day stay for sotalol confusion. Patient is otherwise denying chest pain shortness of breath headache vision changes nausea vomiting or diarrhea. No fevers no chills. No falls trauma or injury. Patient is done the several different times over the last couple months. Patient is been taking his medicines appropriately. He has not had any increased risk for clotting at this point considering he has minimal risk factors and his chads vasc score is low. Patient was given a 20 mg dose of Cardizem and screening labs for rheumatoid abnormalities were reviewed. EKG was collected initially and shows atrial fibrillation with rapid ventricular response. Patient is otherwise stable. Lungs are clear heart is irregular and tachycardic. Abdomen is soft no pulsatile masses or lesions. No other guarding rigidity or peritoneal symptoms. Patient is mentating appropriately. Skin color appears to be normal. Vital signs are stable. Disposition pending full workup and treatment course. - Reevaluation(s) Reevaluation #1: Patient has had intermittent atrial flutter versus febrile here. He is continued falls back and forth between sinus rhythm and fibrillation. Patient does not feel well when he gets up and walks 20s in A. fib and feels lightheaded. Recommendation was made at that point for admission and possible conversion with antiarrhythmic medication. Conversation was had with the hospitalist Dr. Pyle. We reviewed the case at length. He did recommend providing the patient with 40 mEq of potassium by mouth as well as starting him on a Cardizem drip for admission. Patient is otherwise stable. He will be admitted at this time for continuation of care. No other concerns or issues noted. Patient will be monitored here in the emergency department until the admission process is completed. Time: 05:09 Vital Signs Temperature 98.1 F 06/08/18 00:31 Pulse Rate 136 06/08/18 00:31 Respiratory Rate 18 06/08/18 00:31 Blood Pressure 110/85 06/08/18 00:31 O2 Sat by Pulse Oximetry 98 06/08/18 00:31 Temperature 98.1 F 06/08/18 00:31 Pulse Rate 97 06/08/18 02:08 Respiratory Rate 18 06/08/18 02:08 Blood Pressure 110/81 06/08/18 02:08 O2 Sat by Pulse Oximetry 98 06/08/18 02:08 Oxygen Delivery Oxygen Delivery Room Air Arrhythmia/Palpitations - MDM Narrative Medical decision making narrative: atrial fibrillation. - Medical Records Medical records reviewed: Yes I reviewed the patient's medical records. - Lab Data Lab results reviewed: Yes I reviewed the patient's lab results. Result diagrams: 06/08/18 00:38 06/08/18 00:38 Lab Results 06/08/18 06/08/18 06/08/18 Range/Units 00:38 00:38 00:38 WBC 12.9 H (4.3-11.1) K/mcL RBC 4.84 (4.19-5.50) M/mcL Hgb 14.8 (12.9-16.9) g/dL Hct 43.3 (37.5-50.1) % MCV 89.5 (83.0-100.0) fL MCH 30.6 (28.0-33.3) pg MCHC 34.2 (31.6-35.5) g/dL RDW 12.3 (11.5-14.5) % Plt Count 351 (140-400) K/mcL MPV 9.8 (9.4-12.4) fL Immature Gran % 0.4 (0-4) % Seg Neutrophils % 71.8 % Lymphocytes % 18.0 % Monocytes % 8.5 % Eosinophils % 0.8 % Basophils % 0.5 % Neutrophils # 9.3 H (1.6-8.9) K/mcL Lymphocytes # 2.3 (0.6-4.6) K/mcL Monocytes # 1.1 (0.0-1.3) K/mcL Eosinophils # 0.1 (0.0-0.6) K/mcL Basophils # 0.1 (0.0-0.2) K/mcL PT 12.5 H (9.4-12.1) Seconds INR 1.1 APTT 34.4 (26.0-36.0) Seconds Sodium 139 (136-145) mEq/L Potassium 3.7 (3.5-5.1) mEq/L Chloride 104 (98-107) mEq/L Carbon Dioxide 26 (23-29) mEq/L BUN 15 (6-20) mg/dL Creatinine 1.01 (0.70-1.30) mg/dL Est GFR ( Amer) > 60 (> 60) Est GFR (Non-Af Amer) > 60 (> 60) BUN/Creatinine Ratio 15 (6-26) Glucose 99 (70-105) mg/dL Calculated Osmolality 289 (280-300) Calcium 9.7 (8.6-10.3) mg/dL Magnesium 2.1 (1.6-2.6) mg/dL Troponin I < 0.03 (< 0.04) ng/mL TSH 4.648 (0.340-5.600) mcIU/mL - Radiology Data Radiology results reviewed: Yes I reviewed the patient's radiology results. Chest x-ray is unremarkable. - EKG Data EKG attestation: Yes I reviewed and interpreted this EKG. EKG results narrative: EKG shows atrial fibrillation. Heart rate of 89. QRS duration of 99. QTC of 423. [place] is normal. No acute signs of WPW or Brugada syndrome. Compared to previous EKG shows similar morphology. No signs of myocardial infarction or arrhythmia. Critical Care Time Critical Care Time: Yes Total Critical Care Time: 45 Attestation: Critical care performed: Time is exclusive of separately billable procedures. Time includes: direct patient care, patient reassessment, coordination of patient care, interpretation of data (laboratory data, radiology data, and respiratory data), review of patient's medical records, medical consultation and documentation of patient care. Procedures included in critical care time: Procedures excluded from critical care time:
--- NOTE | 2018-06-08 07:35 | Cardiology Consult Note ---
Date of Encounter: 06/08/18 Time of Encounter: 07:30 Assessment and Plan (1) Paroxysmal atrial fibrillation Current Visit: No Status: Acute Propafenone 150mg po Q8hr, EKG in AM. Cardizem 30mg Q8hr. Aspirin. Chadvasc low, and already dw EP Dr. Tran ok to continue aspirin by itself. Discussion w patient/family: The assessment and plan as outlined above was discussed with the patient and/or family members who expressed understanding and agreement. All questions were answered. Thank you for involving us in the care of your patient. Please call with any questions. History of Present Illness Consult date: 06/08/18 Consult reason: afib Chief complaint: palpitations History of present illness: Mr. Cabral is a 57 year old male with history of symptomatic PAF due to be started on propafenone arrives here with again symptomatic AF. He has been seen by EP Dr. Tran and acknowledge that his CHADsvasc does not require chronic AC, so propafenone can be started along with cardizem / aspirin. His palpitations resolved overnight as he reverted to SR Past Med Surg Social Fam HX - Past Medical History Medical history: atrial fibrillation Additional medical history: back injury, right thigh numb Psychiatric history: no psych history - Past Surgical History Surgical History: tonsilectomy, vasectomy Additional surgical history: adenoidectomy - Social History Smoking Status: Never smoker Smokeless Tobacco Status: No Alcohol use: none Drug use: none - Family History Mother Living Status: Age at : 89 Cause of : Pancreatic cancer Hx Family Cardiac Disorders: Yes (HTN) Father Living Status: Age at : 71 Cause of : CANCER Hx Family Cancer: Yes (THROAT, SKIN, STOMACH, LUNG) Medications and Allergies Aspirin Enteric Coated [Aspirin EC] 325 mg PO DAILY #30 tablet. 02/03/17 [Rx] Diltiazem CD (24hr) [Cardizem CD] 180 mg PO DAILY #30 cap.er.24h 05/17/18 [Rx] Cholecalciferol (D-3) [Vitamin D] 2,000 unit PO DAILY 06/08/18 [History] [place]-3/Dha/Epa/Fish Oil [Fish Oil 1,000 mg Softgel] 1 cap PO DAILY 06/08/18 [History] Wheat Dextrin [Benefiber] 152 gm PO DAILY 06/08/18 [History] Allergy/AdvReac Type Severity Reaction Status Date / Time No Known Allergies Allergy Verified 04/30/16 16:39 All Systems Review: The remainder of the systems were reviewed and are negative - Constitutional Constitutional: no chills, no fever(s) - EENT Eyes: no blurred vision, no loss of vision Nose, mouth and throat: no dysphagia, no epistaxis - Cardiovascular Cardiovascular: palpitations, no claudication - Respiratory Respiratory: no hemoptysis, no wheezing - Gastrointestinal Gastrointestinal: no hematemesis, no hematochezia - Genitourinary Genitourinary: no hematuria, no nocturia - Musculoskeletal Musculoskeletal: no arthralgias, no myalgias - Integumentary Integumentary: no rash, no unusual bruising - Neurological Neurological: no syncope, no tingling - Psychiatric Psychiatric: no hallucinations, no panic attacks - Hematological/Lymphatic Hematologic/Lymphatic: no easy bleeding, no easy bruising Physical Examination Vital Signs, Last 4 Hours Temp Pulse Resp BP Pulse Ox 06/08/18 06:14 97.7 F 73 16 114/82 96 06/08/18 05:02 71 16 107/78 97 06/08/18 04:00 91 20 126/65 98 General: Conversant HEENT: Atraumatic Neck: No JVD Cardiac: Other (irr irr s1 s2) Lungs: Normal Breath Sounds Neuro: Alert and responsive Abdomen: Soft Skin: No rashes noted on visualized skin Musculoskeletal: No Chest Wall Tenderness Extremities: No Edema Results 06/08/18 00:38 06/08/18 00:38 Lab Results 06/08/18 06/08/18 06/08/18 00:38 00:38 00:38 WBC 12.9 H Hgb 14.8 Hct 43.3 Plt Count 351 INR 1.1 APTT 34.4 Sodium 139 Potassium 3.7 Chloride 104 Carbon Dioxide 26 BUN 15 Creatinine 1.01 Glucose 99 Calcium 9.7 Magnesium 2.1 Troponin I < 0.03 TSH 4.648 - EKG Interpretation EKG results cardiology: personally reviewed (af rvr) Consult Discharge Plan - Plan Referrals: Chau Melara MD [Primary Care Provider] -
[2018-06-08] MEDS ORDERED: Naloxone 0.4 MG/ML INJ IVP PRN (09:48)
[2018-06-08] MEDS ORDERED: Acetaminophen 325 MG TABLET PO PRN (09:48)
--- NOTE | 2018-06-08 09:53 | Internal Med History&Physical ---
Date of Encounter: 06/08/18 Time of Encounter: 08:00 Internal Medicine - H&P: HPI Chief complaint: Dizziness Admitted From: Home Plans for Post Hospital Care: Home History of present illness: Mr. Cabral is a 57 year old male presented to ER for intermittent dizziness with palpitation. Past medical history is significant for paroxysmal A. fib. Patient said he was found A. fib since 2017. A. fib is intermittent. Patient has symptoms when he has A. fib. Patient complaining of palpitation, dizziness, and almost fall when he has A. fib. Patient denies chest pain, shortness of breath, or nausea on A. fib. 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 However, he still has paroxysmal A. fib with about 3 episodes in last months. Usually, A. fib last about one hour and converts to sinus rhythm spontaneously. However, patient has symptoms last night, which lasted 3-4 hours and switch to sinus until he received IV Cardizem in the emergency room. Patient was recommended by cardiology to be hospitalized for A. fib rhythm control. Past Med Surg Social Fam HX - Past Medical History Medical history: atrial fibrillation Additional medical history: back injury, right thigh numb Psychiatric history: no psych history - Past Surgical History Surgical History: tonsilectomy, vasectomy Additional surgical history: adenoidectomy - Social History Smoking Status: Never smoker Smokeless Tobacco Status: No Alcohol use: none Drug use: none - Family History Mother Living Status: Age at : 89 Cause of : Pancreatic cancer Hx Family Cardiac Disorders: Yes (HTN) Father Living Status: Age at : 71 Cause of : CANCER Hx Family Cancer: Yes (THROAT, SKIN, STOMACH, LUNG) Internal Medicine - H&P: Meds Aspirin Enteric Coated [Aspirin EC] 325 mg PO DAILY #30 tablet.dr 02/03/17 [Rx] Diltiazem CD (24hr) [Cardizem CD] 180 mg PO DAILY #30 cap.er.24h 05/17/18 [Rx] Cholecalciferol (D-3) [Vitamin D] 2,000 unit PO DAILY 06/08/18 [History] [place]-3/Dha/Epa/Fish Oil [Fish Oil 1,000 mg Softgel] 1 cap PO DAILY 06/08/18 [History] Wheat Dextrin [Benefiber] 152 gm PO DAILY 06/08/18 [History] Allergy/AdvReac Type Severity Reaction Status Date / Time No Known Allergies Allergy Verified 04/30/16 16:39 All Systems PM: A 10-system review of systems was performed and is negative for pertinent findings except as documented above in the HPI. - Constitutional Vitals: Temp Pulse Resp BP Pulse Ox 97.7 F 73 16 114/82 96 06/08/18 06:14 06/08/18 06:14 06/08/18 06:14 06/08/18 06:14 06/08/18 06:14 Exam: Pt is AAO x 3, in NAD HEENT: NC/AT, PERRL Neck: Supple, no JVD, no LAD Lungs: CTA b/l Heart: S1S2, RRR Abd: Soft, nontender, BS present Ext: ROM wnl, no pedal edema Neuro: No focal deficit Internal Med - H&P Results - Labs CBC & Chem 7: 06/08/18 00:38 06/08/18 00:38 Labs: Short CBC 06/08/18 Range/Units 00:38 WBC 12.9 H (4.3-11.1) K/mcL Hgb 14.8 (12.9-16.9) g/dL Hct 43.3 (37.5-50.1) % Plt Count 351 (140-400) K/mcL Neutrophils # 9.3 H (1.6-8.9) K/mcL BMP 06/08/18 00:38 Sodium 139 Potassium 3.7 Chloride 104 Carbon Dioxide 26 BUN 15 Creatinine 1.01 Glucose 99 Calcium 9.7 Cardiac Enzymes 06/08/18 Range/Units 00:38 Troponin I < 0.03 (< 0.04) ng/mL - Impressions ITS Impressions Chest X-Ray 06/08/18 00:25 IMPRESSION: No acute cardiopulmonary process D/ / Miguel Ángel Wilson / Miguel Ángel Wilson Interpreting Provider: Miguel Ángel Wilson - Assessment and Plan (1) DVT prophylaxis Current Visit: No Status: Acute Assessment and plan: Patient is young and ambulating well. He is on aspirin 325 daily. No further anticoagulation needed. (2) Paroxysmal atrial fibrillation Current Visit: No Status: Acute Assessment and plan: Change to sinus rhythm at this point. Cardiology consult appreciated. - Continue cardiac monitoring - Po Rythmol started by cardiology. - Further management will follow cardiology recommendation. - Continue ASA 325 mg daily for CVA prevention, per cardiology. - Time Spent With Patient Total time spent is greater than 50% in coordination of care (as documented) at patient's floor/unit and/or counseling patient: 40 minutes Greater than 35 minutes
[2018-06-08] MEDS: Psyllium 1 PACKET POWD.PACK PO SCH (22:43)
[2018-06-09 01:16] LABS: Basophils % 0.4 %; Eosinophils # 0.2 K/mcL (0.0-0.6); Eosinophils % 1.5 %; Hematocrit 41.8 % (37.5-50.1); Hemoglobin 13.9 g/dL (12.9-16.9); Immature Platelets 2.4 % (1.1-6.1); Lymphocytes % 20.4 %; Mean Corpuscular HGB Conc 33.3 g/dL (31.6-35.5); Mean Corpuscular Hemoglobin 30.2 pg (28.0-33.3); Mean Corpuscular Volume 90.7 fL (83.0-100.0); Mean Platelet Volume 9.8 fL (9.4-12.4); Monocytes # 0.8 K/mcL (0.0-1.3); Monocytes % 8.1 %; Neutrophils # 6.7 K/mcL (1.6-8.9); Platelet Count 291 K/mcL (140-400); Red Blood Count 4.61 M/mcL (4.19-5.50); Red Cell Distribution Width 12.4 % (11.5-14.5); Segmented Neutrophils % 68.6 %
[2018-06-09 01:33] LABS: BUN/Creatinine Ratio 14 (6-26); Blood Urea Nitrogen 14 mg/dL (6-20); Calcium 9.4 mg/dL (8.6-10.3); Carbon Dioxide 27 mEq/L (23-29); Chloride 104 mEq/L (98-107); Glucose 143 mg/dL (70-105); Osmolality,Calculated 291 (280-300); Potassium 3.8 mEq/L (3.5-5.1); Sodium 139 mEq/L (136-145); eGFR For Non-African Americans > 60 (> 60)
--- NOTE | 2018-06-09 07:58 | Event Note ---
Date of Encounter: 06/09/18 Time of Encounter: 07:56 - Cardiology Event Note S/P 3 Rythmol doses for PAF. QRS remains stable. ECG 06/08 QRS 103, 06/09 QRS 114. Pt is maintaining SR. Per previous note, on ASA only for AC (low [id number]). Currently on Cardizem 30mg [id number]. Will transition to Cardizem CD 120mg daily. If ECG tomorrow AM shows QRS remains stable (<120ms), anticipate sign off at that time.
[2018-06-09] MEDS: Cholecalciferol (D-3) 1,000 UNIT TABLET PO SCH (08:54)
[2018-06-09] MEDS: Psyllium 1 PACKET POWD.PACK PO SCH (08:54)
[2018-06-09] MEDS: Aspirin Enteric Coated 325 MG Tablet PO SCH (08:54)
[2018-06-09] MEDS: Diltiazem CD (24hr) 120 MG CAPSULE PO SCH (09:29)
--- NOTE | 2018-06-09 09:54 | Electrocardiograph Report ---
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
--- NOTE | 2018-06-09 10:01 | Electrocardiograph Report ---
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
--- NOTE | 2018-06-09 12:01 | Internal Med Progress Note ---
Hospitalist Progress Note - Encounter Date of Encounter: 06/09/18 Time of Encounter: 09:00 - Subjective Interval History: Patient has no complaints. Heart rate remains in sinus rhythm. - Exam Vitals: Temp Pulse Resp BP Pulse Ox 98.0 F 67 16 129/84 97 06/09/18 11:26 06/09/18 11:26 06/09/18 11:26 06/09/18 11:26 06/09/18 05:54 Exam: Pt is AAO x 3, in NAD HEENT: NC/AT, PERRL Neck: Supple, no JVD, no LAD Lungs: CTA b/l Heart: S1S2, RRR Abd: Soft, nontender, BS present Ext: ROM wnl, no pedal edema Neuro: No focal deficit - Assessment and Plan (1) DVT prophylaxis Current Visit: No Status: Acute Assessment and Plan: Patient is young and ambulating well. He is on aspirin 325 daily. No further anticoagulation needed. (2) Paroxysmal atrial fibrillation Current Visit: No Status: Acute Assessment and Plan: Change to sinus rhythm at this point. Cardiology consult appreciated. - Continue cardiac monitoring - Po Rythmol started by cardiology. - Further management will follow cardiology recommendation. - Continue ASA 325 mg daily for CVA prevention, per cardiology. - Time Spent with Patient Total time spent is greater than 50% in coordination of care (as documented) at patient's floor/unit and/or counseling patient: 15 minutes less than 15 minutes Plan of Care Discussed with: patient Internal Medicine: Result - Labs CBC & Chem 7: 06/09/18 00:50 06/09/18 00:50 Labs: Short CBC 06/09/18 Range/Units 00:50 WBC 9.8 (4.3-11.1) K/mcL Hgb 13.9 (12.9-16.9) g/dL Hct 41.8 (37.5-50.1) % Plt Count 291 (140-400) K/mcL Neutrophils # 6.7 (1.6-8.9) K/mcL BMP 06/09/18 00:50 Sodium 139 Potassium 3.8 Chloride 104 Carbon Dioxide 27 BUN 14 Creatinine 0.98 Glucose 143 H Calcium 9.4 - ABG Interpretation ABG results: PT/INR, D-dimer PT 12.5 Seconds (9.4-12.1) H 06/08/18 00:38 Consult Discharge Plan - Plan Referrals: Chau Melara MD [Primary Care Provider] -
[2018-06-10 05:32] LABS: Basophils # 0.1 K/mcL (0.0-0.2); Basophils % 0.7 %; Eosinophils # 0.2 K/mcL (0.0-0.6); Eosinophils % 1.6 %; Hematocrit 44.2 % (37.5-50.1); Hemoglobin 14.9 g/dL (12.9-16.9); Immature Granulocytes % 0.8 % (0-4); Lymphocytes # 2.5 K/mcL (0.6-4.6); Lymphocytes % 23.4 %; Mean Corpuscular HGB Conc 33.7 g/dL (31.6-35.5); Mean Corpuscular Hemoglobin 30.5 pg (28.0-33.3); Mean Corpuscular Volume 90.6 fL (83.0-100.0); Mean Platelet Volume 9.7 fL (9.4-12.4); Monocytes % 9.5 %; Neutrophils # 6.9 K/mcL (1.6-8.9); Platelet Count 316 K/mcL (140-400); Red Blood Count 4.88 M/mcL (4.19-5.50); Red Cell Distribution Width 12.4 % (11.5-14.5)
[2018-06-10 05:52] LABS: BUN/Creatinine Ratio 13 (6-26); Blood Urea Nitrogen 13 mg/dL (6-20); Calcium 9.2 mg/dL (8.6-10.3); Carbon Dioxide 28 mEq/L (23-29); Chloride 105 mEq/L (98-107); Glucose 101 mg/dL (70-105); Magnesium 2.1 mg/dL (1.6-2.6); Osmolality,Calculated 288 (280-300); Potassium 3.7 mEq/L (3.5-5.1); Sodium 139 mEq/L (136-145); eGFR For Non-African Americans > 60 (> 60)
[2018-06-10 06:58] VITALS: BP 134/93
--- NOTE | 2018-06-10 08:29 | Event Note ---
Date of Encounter: 06/10/18 Time of Encounter: 08:27 - Cardiology Event Note Patient was started on rhythmol for PAF. Currently s/p 6 total doses of rhythmol. ECG this am with SB, HR 59. QRS 108ms, stable. On cardizem CD 120mg. Not on anticoagulation due to low [id number] score, continue ASA. Cardiology will sign off, will arrange outpatient follow up.
[2018-06-10] MEDS: Psyllium 1 PACKET POWD.PACK PO SCH (08:58)
[2018-06-10] MEDS: Diltiazem CD (24hr) 120 MG CAPSULE PO SCH (08:58)
[2018-06-10] MEDS: Cholecalciferol (D-3) 1,000 UNIT TABLET PO SCH (08:58)
[2018-06-10] MEDS: Aspirin Enteric Coated 325 MG Tablet PO SCH (08:58)
--- NOTE | 2018-06-10 10:05 | Discharge Summary ---
- NOTES TO OUTPATIENT PROVIDER Notes to Outpatient Provider: per cardio, started rhythmol 150mg po tid, decrease cardizem CD dose to 120mg po daily, please f/u HR and BP and EKG changes. Orders not resulted at time of discharge: Pending orders 06/08/18 01:07 EKG [ECG 12 lead ECG] [ECG] Stat Date of Encounter: 06/10/18 Time of Encounter: 09:00 - Discharge Diagnosis (1) DVT prophylaxis Priority: Secondary Status: Acute (2) Paroxysmal atrial fibrillation Priority: Primary Status: Acute Hospital course: Mr. Cabral is a 57 year old male presented to ER for symptomatic A. fib. Patient was admitted for rhythm control. Patient initially placed on Cardizem drip and the heart rate switch to sinus rhythm. Cardiology saw patient and started Rythmol 150 mg by mouth 3 times a day with Cardizem CD 120 mg by mouth daily. Patient was monitored in telemetry for over 48 hours, keep on sinus rhythm. Cardiology signed off. Will DC patient home on by mouth medications per cardio recommendation. Continue follow-up with PCP and cardiology as outpatient. I have seen and examined the patient today. Patient feels fine. No complaint. Vitals are stable. Stable to DC home. Discharge discussed with: patient - Time Spent with Patient Total time spent providing and/or coordinating discharge services: 25 minutes Time spent: Less than 30 minutes - Discharge Medications Prescriptions: New Propafenone [Rhythmol] 150 mg PO Q8HR 30 Days #90 tablet Diltiazem CD (24hr) [Cardizem CD] 120 mg PO DAILY 30 Days #30 cap.er.24h Continue Aspirin Enteric Coated [Aspirin EC] 325 mg PO DAILY #30 tablet. Cholecalciferol (D-3) [Vitamin D] 2,000 unit PO DAILY [place]-3/Dha/Epa/Fish Oil [Fish Oil 1,000 mg Softgel] 1 cap PO DAILY Wheat Dextrin [Benefiber] 152 gm PO DAILY Discontinued Diltiazem CD (24hr) [Cardizem CD] 180 mg PO DAILY #30 cap.er.24h Home Medications: Aspirin Enteric Coated [Aspirin EC] 325 mg PO DAILY #30 tablet. 02/03/17 [Rx] Cholecalciferol (D-3) [Vitamin D] 2,000 unit PO DAILY 06/08/18 [History] [place]-3/Dha/Epa/Fish Oil [Fish Oil 1,000 mg Softgel] 1 cap PO DAILY 06/08/18 [History] Wheat Dextrin [Benefiber] 152 gm PO DAILY 06/08/18 [History] Diltiazem CD (24hr) [Cardizem CD] 120 mg PO DAILY 30 Days #30 cap.er.24h 06/10/18 [Rx] Propafenone [Rhythmol] 150 mg PO Q8HR 30 Days #90 tablet 06/10/18 [Rx] Allergies/Adverse Reactions: Allergy/AdvReac Type Severity Reaction Status Date / Time No Known Allergies Allergy Verified 06/08/18 11:18 Date of admission: 06/08/18 03:42 Primary care physician: Chau Melara MD Consults: 06/08/18 07:25 Consult to Cardiology [CONS] Routine Comment: Consulting Provider: Cardiology Astrid Reason for Consult: A Fib, need rhythm control Call Completed: No Discharging clinician: José Lazaro Anticipated date of discharge: 06/10/18 - Constitutional Vitals: Temp Pulse Resp BP Pulse Ox 97.9 F 68 16 134/93 94 06/10/18 06:57 06/10/18 06:57 06/10/18 06:57 06/10/18 06:57 06/10/18 06:57 Exam: Pt is AAO x 3, in NAD HEENT: NC/AT, PERRL Neck: Supple, no JVD, no LAD Lungs: CTA b/l Heart: S1S2, RRR Abd: Soft, nontender, BS present Ext: ROM wnl, no pedal edema Neuro: No focal deficit - Patient Status Disposition: Home, Self-Care Condition: Good Functional capacity at discharge: independent ambulation Overall status at discharge: patient is back to baseline - Discharge Instructions Follow Up With: Chau Melara MD [Primary Care Provider] - - Diet and Activity Activity: increase activity as tolerated Diet: low fat, low cholesterol, low salt diet
--- NOTE | 2018-06-10 16:00 | Electrocardiograph Report ---
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
--- NOTE | 2018-06-10 16:30 | Electrocardiograph Report ---
[address] [address] Test Date: 2018-06-09 Pat Name: Tru Cabral Department: 111 Room: 2NE16 Gender: M Band Edger: : 1960 Requested By: Dexter Singh Order Number: [id number] Reading MD: Chrystal Yu Measurements Intervals [place] Rate: 70 P: 51 GA: 201 QRS: 43 QRSD: 114 T: 22 QT: 391 QTc: 412 Interpretive Statements SINUS RHYTHM MODERATE INTRAVENTRICULAR CONDUCTION DELAY Electronically Signed On 06-10-2018 16:28:37 EDT by Chrystal Yu
== END 2018-06-10 12:39 | disposition home or self-care (01) ==
LOC: 2NENU 00:16 → EMEROOARM 00:16 → 2NENU 06:09
PROVIDERS: ADMIT Pediatrics; ATTEND Internal Medicine

== ENCOUNTER 2018-07-18 20:15 | Observation (INO) ==
[2018-07-18] MEDS ORDERED: 0.9 % Sodium Chloride 1,000 ML IVC ONE (20:36)
--- NOTE | 2018-07-18 20:40 | Emergency Department Note ---
Disposition Clinical Impression: Atrial fibrillation with RVR Disposition: Admitted As Inpatient Condition: Fair Referrals: Chau Melara MD [Primary Care Provider] - Forms: ED Satisfaction Letter Time of Disposition: 22:53 Arrhythmia/Palpitations HPI - General Chief Complaint: ED Arrhythmia/Palpitations Stated Complaint: AFIB Time Seen by Provider: 07/18/18 20:25 Nursing Notes Reviewed: Yes Vital Signs Reviewed: Yes - History of Present Illness HPI Narrative: 57yo male presents from home for evaluation of palpitations. Onset approximately 7 PM; 90 minutes prior to arrival. Patient has history of paro xysmal atrial fibrillation currently rate controlled with propranolol and Coreg. Structural Manager is Dr. Carroll Tran. He is in discussion to get scheduled for ablation therapy. Patient's no other medical history. He symptomatic with weakness generalized, mild lightheadedness, mild soreness of breath all worse with exertion. ROS: Positive: Palpitations, dyspnea, mild lightheadedness, generalized weakness Negative: Fever, chills, nausea, vomiting, chest pains, abdominal pain, unusual back pain - Related Data Home Medications Medication Instructions Recorded Confirmed Cholecalciferol (D-3) [Vitamin D] 2,000 unit PO DAILY 06/08/18 06/08/18 [place]-3/Dha/Epa/Fish Oil [Fish Oil 1 cap PO DAILY 06/08/18 06/08/18 1,000 mg Softgel] Wheat Dextrin [Benefiber] 152 gm PO DAILY 06/08/18 06/08/18 Previous Rx's Medication Instructions Recorded Aspirin Enteric Coated [Aspirin EC] 325 mg PO DAILY #30 tablet. 02/03/17 Allergies Allergy/AdvReac Type Severity Reaction Status Date / Time No Known Allergies Allergy Verified 06/08/18 11:18 All systems ED: reviewed and negative except as stated. Review of Systems: As Per HPI Past Medical History - Past Medical History Medical history: Reports: atrial fibrillation Surgical history: Reports: tonsillectomy, vasectomy Psychiatric history: Reports: no psych history - Social History Smoking Status: Never smoker Smokeless Tobacco Status: No Alcohol use: Reports: none Drug use: Reports: none Physical Exam Vital Signs Reviewed General: Patient is alert, oriented, and in no acute distress. Head: atraumatic, normocephalic Eye: normal appearance, PERRL, EOMI, no scleral icterus, no conjunctival injection ENT: mucous membranes moist, normal external ear exam Neck: normal inspection, trachea midline, full ROM Chest: normal inspection, symmetric chest rise Respiratory: Good respiratory effort. Bilateral breath sounds are clear without wheezing, crackles, or rhonchi. Cardiovascular: Tachycardic rate and irregular rhythm. No clicks, rubs, gallops, or murmors. Normal heart sounds. Bilateral radial and posterior tibial pulses palpable. Abdomen: Bowel sounds present normoactive. Abdomen is soft, nondistended, and n ontender. No guarding or rebound. No organomegaly noted. Musculoskeletal: Spontaneously moving all extremities. Skin: warm, dry, intact. Neuro: GCS 15. No focal neurologic deficits observed. Psych: Patient's affect is appropriate for situation. Course Course Narrative: Patient's blood pressure initially soft with systolic 96 when he was A. fib RVR with a rate in the 150s. Patient was not clinically unstable. After 1 L fluids and continue monitoring, his blood pressure improved to systolic 1:15. Cardizem bolus with low-dose drip was started. With Cardizem drip at 5 mg, heart rate improved to the 70s to 80s with blood pressure still above 100. He then broke through this with heart rate to low 100s and blood pressure soft or to 96. I spoke with nursing and we agreed to not increase the drip. I discussed the above with the admitting hospitalist, Dr. Pyle, who agrees to accept the patient for A. fib RVR. Vital Signs Temperature 98.3 F 07/18/18 20:19 Pulse Rate 135 07/18/18 20:19 Respiratory Rate 18 07/18/18 20:19 Blood Pressure 101/66 07/18/18 20:19 O2 Sat by Pulse Oximetry 96 07/18/18 20:19 Temperature 98.3 F 07/18/18 20:39 Pulse Rate 103 07/18/18 22:26 Respiratory Rate 16 07/18/18 22:26 Blood Pressure 96/69 07/18/18 22:26 O2 Sat by Pulse Oximetry 96 07/18/18 22:26 Oxygen Delivery Oxygen Delivery Room Air Arrhythmia/Palpitations - Lab Data Result diagrams: 07/18/18 20:45 07/18/18 20:45 Lab Results 07/18/18 07/18/18 07/18/18 Range/Units 20:45 20:45 20:45 WBC 10.8 (4.3-11.1) K/mcL RBC 4.88 (4.19-5.50) M/mcL Hgb 15.2 (12.9-16.9) g/dL Hct 44.0 (37.5-50.1) % MCV 90.2 (83.0-100.0) fL MCH 31.1 (28.0-33.3) pg MCHC 34.5 (31.6-35.5) g/dL RDW 12.4 (11.5-14.5) % Plt Count 329 (140-400) K/mcL MPV 10.1 (9.4-12.4) fL Immature Gran % 0.6 (0-4) % Seg Neutrophils % 71.7 % Lymphocytes % 16.8 % Monocytes % 9.1 % Eosinophils % 1.3 % Basophils % 0.5 % Neutrophils # 7.8 (1.6-8.9) K/mcL Lymphocytes # 1.8 (0.6-4.6) K/mcL Monocytes # 1.0 (0.0-1.3) K/mcL Eosinophils # 0.1 (0.0-0.6) K/mcL Basophils # 0.1 (0.0-0.2) K/mcL PT 14.0 H (9.4-12.1) Seconds INR 1.2 APTT 38.0 H (26.0-36.0) Seconds Sodium 136 (136-145) mEq/L Potassium 3.5 (3.5-5.1) mEq/L Chloride 104 (98-107) mEq/L Carbon Dioxide 23 (23-29) mEq/L BUN 21 H (6-20) mg/dL Creatinine 1.25 (0.70-1.30) mg/dL Est GFR ( Amer) > 60 (> 60) Est GFR (Non-Af Amer) 60 (> 60) BUN/Creatinine Ratio 17 (6-26) Glucose 127 H (70-105) mg/dL Calculated Osmolality 287 (280-300) Calcium 9.4 (8.6-10.3) mg/dL Troponin I < 0.03 (< 0.04) ng/mL TSH 2.828 (0.340-5.600) mcIU/mL Attestation Statement - Attestation Attestation: Resident Attestation: I examined this patient and my medical decision making was reviewed with the Resident Physician. I agree with the documented findings, disposition and treatment plan as described except to the extent set forth below. We independently had [id number] contact with the patient. Patient with a history of A. fib on propranolol as well as Cardizem and Eliquis followed by Dr. Tran for atrial fibrillation and has been told he may need an ablation. Patient had onset of shortness of breath as well as palpitations. Patient can feel when he goes from sinus rhythm into atrial fibrillation. Patient tachycardic into the 150s. Patient has been improving while he is been in the room resting with heart rate in the 130s and blood pressure of 115 systolic.. Patient will receive Cardizem and undergo further evaluation for A. fib RVR.
[2018-07-18 20:54] LABS: Basophils # 0.1 K/mcL (0.0-0.2); Basophils % 0.5 %; Eosinophils # 0.1 K/mcL (0.0-0.6); Eosinophils % 1.3 %; Hemoglobin 15.2 g/dL (12.9-16.9); Immature Granulocytes % 0.6 % (0-4); Lymphocytes # 1.8 K/mcL (0.6-4.6); Lymphocytes % 16.8 %; Mean Corpuscular HGB Conc 34.5 g/dL (31.6-35.5); Mean Corpuscular Hemoglobin 31.1 pg (28.0-33.3); Mean Corpuscular Volume 90.2 fL (83.0-100.0); Mean Platelet Volume 10.1 fL (9.4-12.4); Monocytes % 9.1 %; Neutrophils # 7.8 K/mcL (1.6-8.9); Platelet Count 329 K/mcL (140-400); Red Blood Count 4.88 M/mcL (4.19-5.50); Red Cell Distribution Width 12.4 % (11.5-14.5); Segmented Neutrophils % 71.7 %
[2018-07-18 21:05] LABS: INR 1.2
[2018-07-18 21:18] LABS: BUN/Creatinine Ratio 17 (6-26); Blood Urea Nitrogen 21 mg/dL (6-20); Calcium 9.4 mg/dL (8.6-10.3); Carbon Dioxide 23 mEq/L (23-29); Chloride 104 mEq/L (98-107); Glucose 127 mg/dL (70-105); Osmolality,Calculated 287 (280-300); Potassium 3.5 mEq/L (3.5-5.1); Sodium 136 mEq/L (136-145); eGFR For Non-African Americans 60 (> 60)
[2018-07-18 21:20] LABS: Troponin I < 0.03 ng/mL (< 0.04)
[2018-07-18 21:48] LABS: Thyroid Stimulating Hormone 2.828 mcIU/mL (0.340-5.600)
[2018-07-18 23:11] LABS: Magnesium 2.2 mg/dL (1.6-2.6)
[2018-07-19] MEDS ORDERED: Naloxone 0.4 MG/ML INJ IVP PRN (02:35)
--- NOTE | 2018-07-19 02:40 | Internal Med History&Physical ---
Date of Encounter: 07/19/18 Time of Encounter: 01:24 Internal Medicine - H&P: HPI Chief complaint: Atrial fibrillation Admitted From: Emergency Dept Plans for Post Hospital Care: Home History of present illness: Mr. Cabral is a 57 year old male Patient presented to the emergency room with atrial fibrillation that began about 90 minutes prior to his arrival. He has a history of paroxysmal atrial fibrillation and has been on propranolol, Coreg as well as Rythmol. He follows with cardiology and has been considered for ablation therapy, but this is yet to be scheduled. He has associated shortness of breath and weakness as well. In the emergency room patient's temperature was 98.3, pulse of 135 and irregular, respiratory rate 18, blood pressure 101/66 and O2 saturation 96% on room air. CBC was within normal limits and BMP was also within normal limits. Initial troponin was undetectable, TSH was 2.828. INR was 1.2. Chest x-ray showed no acute process. Initial EKG demonstrated atrial fibrillation with a rate of 151 there are no ischemic changes compared to previous. He was given 1 L of fluid as well as a bolus of Cardizem. He was started on a Cardizem drip and his heart rate improved to sinus rhythm rate of 76. Patient was admitted to the hospital for further monitoring. Upon my evaluation, patient is resting comfortably in the hospital bed in no acute distress. He denied chest pain, abdominal pain, nausea, vomiting, diarrhea and constipation. He is full code. Past Med Surg Social Fam HX - Past Medical History Medical history: atrial fibrillation Additional medical history: back injury, right thigh numb Psychiatric history: no psych history - Past Surgical History Surgical History: tonsillectomy, vasectomy Additional surgical history: adenoidectomy - Social History Smoking Status: Never smoker Smokeless Tobacco Status: No Alcohol use: none Drug use: none - Family History Mother History Unknown: Yes Living Status: Hx Family Cardiac Disorders: Yes (HTN) Father History Unknown: Yes Living Status: Hx Family Cancer: Yes (THROAT, SKIN, STOMACH, LUNG) Internal Medicine - H&P: Meds Unable To Obtain [Unable to Obtain] 07/19/18 [History] Allergy/AdvReac Type Severity Reaction Status Date / Time No Known Allergies Allergy Verified 06/08/18 11:18 All Systems PM: A 10-system review of systems was performed and is negative for pertinent findings except as documented above in the HPI. - Constitutional Vitals: Temp Pulse Resp BP Pulse Ox 97.6 F 71 15 117/72 99 07/18/18 23:34 07/18/18 23:34 07/18/18 23:34 07/18/18 23:34 07/19/18 00:18 General appearance: Present: cooperative, A&O X 3, pleasant, no acute distress, answers questions appropriately Exam: - - Head Head exam: Present: normal inspection - Respiratory Respiratory exam: Present: CTAB. Absent: rales, respiratory distress, rhonchi, wheezes - Cardiovascular Cardiovascular exam: Present: RRR. Absent: diastolic murmur, irregular rhythm, systolic murmur - GI/Abdominal GI/Abdominal exam: Present: normal bowel sounds, soft. Absent: tenderness - Extremities Exam Extremities exam: Present: warm, radial pulses palpable and symmetrical. Absent: calf tenderness, pedal edema, tenderness - Neurological Exam Neurological exam: Present: no focal deficits, strengths equal and symetr throughout. Absent: motor sensory deficit, facial droop, speech deficit - Skin Skin exam: Present: dry, normal color, warm Internal Med - H&P Results - Labs CBC & Chem 7: 07/19/18 05:15 07/18/18 20:45 Labs: Short CBC 07/18/18 Range/Units 20:45 WBC 10.8 (4.3-11.1) K/mcL Hgb 15.2 (12.9-16.9) g/dL Hct 44.0 (37.5-50.1) % Plt Count 329 (140-400) K/mcL Neutrophils # 7.8 (1.6-8.9) K/mcL BMP 07/18/18 20:45 Sodium 136 Potassium 3.5 Chloride 104 Carbon Dioxide 23 BUN 21 H Creatinine 1.25 Glucose 127 H Calcium 9.4 Cardiac Enzymes 07/18/18 Range/Units 20:45 Troponin I < 0.03 (< 0.04) ng/mL - Impressions ITS Impressions Chest X-Ray 07/18/18 20:36 IMPRESSION: No acute process. D/ / Manjinder Tang MD / Manjinder Tang MD Interpreting Provider: Manjinder Tang MD - Assessment and Plan (1) Atrial fibrillation with rapid ventricular response Current Visit: Yes Status: Acute Assessment and plan: Now in sinus rhythm. On cardizem drip. Blood pressures stable. Continue cardizem drip Cardiology consult Continue cardiac monitoring. (2) DVT prophylaxis Current Visit: No Status: Acute Assessment and plan: Patient back in sinus rhythm, Continue home eliquis - Time Spent With Patient Total time spent is greater than 50% in coordination of care (as documented) at patient's floor/unit and/or counseling patient: Greater than 35 minutes
[2018-07-19 06:39] LABS: Hematocrit 42.4 % (37.5-50.1); Hemoglobin 14.1 g/dL (12.9-16.9); Mean Corpuscular HGB Conc 33.3 g/dL (31.6-35.5); Mean Corpuscular Hemoglobin 30.7 pg (28.0-33.3); Mean Corpuscular Volume 92.4 fL (83.0-100.0); Mean Platelet Volume 10.3 fL (9.4-12.4); Platelet Count 292 K/mcL (140-400); Red Blood Count 4.59 M/mcL (4.19-5.50); Red Cell Distribution Width 12.5 % (11.5-14.5)
[2018-07-19 07:00] LABS: BUN/Creatinine Ratio 17 (6-26); Blood Urea Nitrogen 18 mg/dL (6-20); Calcium 9.1 mg/dL (8.6-10.3); Carbon Dioxide 26 mEq/L (23-29); Chloride 106 mEq/L (98-107); Glucose 101 mg/dL (70-105); Osmolality,Calculated 292 (280-300); Potassium 4.1 mEq/L (3.5-5.1); Sodium 140 mEq/L (136-145); eGFR For Non-African Americans > 60 (> 60)
[2018-07-19 07:15] VITALS: BP 113/83
--- NOTE | 2018-07-19 08:08 | Event Note ---
Date of Encounter: 07/19/18
[2018-07-19] MEDS ORDERED: Apixaban 5 MG TABLET PO SCH (09:00)
--- NOTE | 2018-07-19 10:21 | Discharge Summary ---
<Manjinder Meraz - Last Filed: 07/19/18 10:18> - NOTES TO OUTPATIENT PROVIDER Notes to Outpatient Provider: Pt presented with Afib RVR. Placed on cardizem dripgeorges. No med changes. Planned for outpt ablation with Dr. Tran. Date of Encounter: 07/19/18 Time of Encounter: 08:45 - Discharge Diagnosis (1) Atrial fibrillation with rapid ventricular response Priority: Primary Status: Acute Hospital course: Mr. Cabral is a 57 year old male with history of atrial fibrillation with rapid ventricular response who presented to the hospital in rapid ventricular response. He takes Rythmol and Cardizem at home as well as request for anticoagulation. He says that he was at home taking a drink of water when he felt his heart rate become rapid. He came to the hospital and was found to have a heart rate above 135 which was irregular. He was started on a Cardizem drip which did cause him to convert back to sinus rhythm. He is now feeling fine without any acute symptoms. He is seen by electrophysiology in the outpatient setting and is planning for a cardiac ablation for long-term management. I did speak with on-call greaser and oiler to feels that the most appropriate management for this patient would be to discharge for outpatient management. We will discharge on home medication regimen and have him follow-up with outpatient greaser and oiler. Discharge discussed with: patient, nurse, technology applications consultant - Time Spent with Patient Total time spent providing and/or coordinating discharge services: - Discharge Medications Prescriptions: New Apixaban [Eliquis] 5 mg PO BID tablet Continued Propafenone [Rhythmol] 150 mg PO TID Diltiazem CD (24hr) [Cardizem CD] 120 mg PO DAILY Home Medications: Apixaban [Eliquis] 5 mg PO BID tablet 07/19/18 [Rx] Diltiazem CD (24hr) [Cardizem CD] 120 mg PO DAILY 07/19/18 [History] Propafenone [Rhythmol] 150 mg PO TID 07/19/18 [History] Allergies/Adverse Reactions: Allergy/AdvReac Type Severity Reaction Status Date / Time No Known Allergies Allergy Verified 06/08/18 11:18 Date of admission: 07/18/18 23:03 Primary care physician: Chau Melara MD Discharging clinician: Manjinder Meraz Anticipated date of discharge: 07/19/18 - Constitutional Vitals: Temp Pulse Resp BP Pulse Ox 97.9 F 78 16 113/83 96 07/19/18 07:08 07/19/18 07:08 07/19/18 07:08 07/19/18 07:08 07/19/18 07:08 General appearance: Present: cooperative, A&O X 3, pleasant, no acute distress, answers questions appropriately Exam: Gen: Vitals noted. No acute distress. Eyes: anicteric sclerae, moist conjunctivae; no lid-lag; Pupils equal and reactive to light HENT: Atraumatic; oropharynx clear with moist mucous membranes and no mucosal ulcerations; normal hard and soft palate Neck: Trachea midline; supple, no thyromegaly or lymphadenopathy Cardiac: RRR, no murmur, +S1/S2 Pulmonary: CTA bilaterally, no wheezes, rales or rhonchi, equal chest expansion Abdomen: soft, nontender, no guarding. No masses or hepatosplenomegaly MSK: ROM intact, no joint swelling noted Extremities: no BLE edema, nontender calf, no cyanosis or clubbing Skin: Normal temperature, turgor and texture; no rash, ulcers or subcutaneous nodules Neuro: moves all extremities, no focal deficits. Psych: Appropriate mood and behavior. A&Ox3 - Patient Status Disposition: Home, Self-Care Condition: Good Functional capacity at discharge: independent ambulation Overall status at discharge: patient is back to baseline - Discharge Instructions Instructions: Atrial Fibrillation (DC) Follow Up With: Chau Melara MD [Primary Care Provider] - 07/23/18 1:00 pm Additional Instructions: Continue home medications. Return to the ED for recurrent symptoms. Follow-up with outpatient greaser and oiler to arrange for previously planned ablation. - Diet and Activity Activity: increase activity as tolerated Diet: regular diet <Fabien Howell - Last Filed: 07/19/18 12:35> Date of Encounter: 07/19/18 Date of admission: 07/18/18 23:03 Primary care physician: Chau Melara MD - Attending Attestation Patient seen and examined. I agree with the discharge plan as documented above by the resident. Patient seen and examined >8h after admission. In summary, pt w known A-Fib on eliquis, diltiazem, and propafenone therapy, presented w palpitations and rapid heart beat and found to be in A-Fib RVR. Placed on diltiazem gtt overnight with conversion to sinus rhythm. Pt already has outpatient cardio follow up with planned outpatient ablation, and will discharge with this same plan.
--- NOTE | 2018-07-19 21:15 | Electrocardiograph Report ---
[place] [address] Test Date: 2018-07-18 Pat Name: Tru Cabral Department: EXAM30 Room: 2NE27 Gender: M Block Hacker: : 1960 Requested By: Josh Hernández Order Number: [id number] Reading MD: Chava Phelan Measurements Intervals [place] Rate: 151 P: NE: QRS: 45 QRSD: 119 T: -39 QT: 303 QTc: 481 Interpretive Statements Atrial flutter with varied AV block, Nonspecific intraventricular conduction delay Nonspecific T abnormalities, inferior leads Electronically Signed On 07-19-2018 21:13:34 EDT by Chava Phelan
--- NOTE | 2018-07-19 21:33 | Electrocardiograph Report ---
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
--- NOTE | 2018-07-23 13:50 | Electrocardiograph Report ---
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
== END 2018-07-19 11:51 | disposition home or self-care (01) ==
LOC: 2NENU 20:15 → EMEROOARM 20:15 → 2NENU 23:25
PROVIDERS: ADMIT Pediatrics; ATTEND Pediatrics